=== PATIENT | male | born 1950 | race Caucasian/White ===

== ENCOUNTER → 2016-07-14 | Outpatient (CLI) | payer MEDICARE ==
[~2016-07-14] MED LIST: ACET50TA PO; AMLO5TAB2 PO; ASPI81TA85 PO; KEFL250C6 PO; RAMI10CA PO; SIMV40TA2 PO; VICO5TAB16 PO; chantix OR; metoprolol OR
[2016-07-14 13:44] LABS: ALBUMIN 3.5 GM/DL (3.2-5.2); ANION GAP 10 MEQ/L (8-16); BLOOD UREA NITROGEN 13 MG/DL (7-18); CALCIUM LEVEL 9.1 MG/DL (8.8-10.2); CARBON DIOXIDE LEVEL 25 MEQ/L (21-32); CHLORIDE LEVEL 106 MEQ/L (98-107); CREATININE FOR GFR 0.94 MG/DL (0.70-1.30); GLOMERULAR FILTRATION RATE > 60.0 (>49); GLUCOSE, FASTING 127 MG/DL (80-110); PHOSPHORUS LEVEL 2.9 MG/DL (2.5-4.9); POTASSIUM SERUM 4.5 MEQ/L (3.5-5.1); SODIUM LEVEL 141 MEQ/L (136-145)
== END ==
LOC: M SMT 09:19
PROVIDERS: ATTEND Nurse Practitioner Family
DX: I10 Essential (primary) hypertension (principal)

== ENCOUNTER → 2016-07-14 | Outpatient (CLI) | payer MEDICARE | LOC: M SMT 09:13 | PROVIDERS: ATTEND Family Medicine | DX: F52.21 Male erectile disorder (principal); I10 Essential (primary) hypertension ==

== ENCOUNTER → 2017-02-21 | Outpatient (CLI) | payer MEDICARE ==
[2017-02-21 15:49] LABS: BASO # 0.1 10^3/uL (0.0-0.2); BASO % 0.6 % (0.0-1.0); EOS # 0.3 10^3/uL (0.0-0.50); EOS % 3.8 % (0.0-3.0); IMMATURE GRANULOCYTE % 0.2 % (0-0); LYMPH # 2.1 10^3/uL (1.5-4.5); LYMPH % 25.3 % (24.0-44.0); MEAN CORPUSCULAR HEMOGLOBIN 31.6 pg (27.0-33.0); MEAN CORPUSCULAR HGB CONC 32.8 g/dl (32.0-36.5); MEAN CORPUSCULAR VOLUME 96.3 fl (80.0-96.0); MONO # 0.7 10^3/uL (0.0-0.8); MONO % 8.3 % (0.0-5.0); NEUTROPHILS % 61.8 % (36.0-66.0); PLATELET COUNT, AUTOMATED 207 10^3/uL (150-450); RED CELL DISTRIBUTION WIDTH 13.3 % (11.5-14.5); WHITE BLOOD COUNT 8.1 10^3/uL (4.0-10.0)
[2017-02-21 16:25] LABS: ALBUMIN 3.5 GM/DL (3.2-5.2); ALBUMIN/GLOBULIN RATIO 1.13 (1.00-1.93); BILIRUBIN,TOTAL 0.5 MG/DL (0.2-1.0); CALCIUM LEVEL 9.3 MG/DL (8.8-10.2); CREATININE FOR GFR 1.39 MG/DL (0.70-1.30); GLOMERULAR FILTRATION RATE 54.3 (>49); POTASSIUM SERUM 4.8 MEQ/L (3.5-5.1); TOTAL PROTEIN 6.6 GM/DL (6.4-8.2)
== END ==
LOC: M SMT 10:05
PROVIDERS: ATTEND Family Medicine
DX: I10 Essential (primary) hypertension (principal); E78.2 Mixed hyperlipidemia

== ENCOUNTER → 2017-05-22 | Outpatient (CLI) | payer MEDICARE ==
[2017-05-22 13:53] LABS: BASO # 0.1 10^3/uL (0.0-0.2); BASO % 0.6 % (0.0-1.0); EOS # 0.2 10^3/uL (0.0-0.50); HEMATOCRIT 41.7 % (42.0-52.0); HEMOGLOBIN 13.7 g/dl (14.0-18.0); IMMATURE GRANULOCYTE % 0.2 % (0-0); LYMPH # 1.2 10^3/uL (1.5-4.5); LYMPH % 15.1 % (24.0-44.0); MEAN CORPUSCULAR HEMOGLOBIN 30.9 pg (27.0-33.0); MEAN CORPUSCULAR HGB CONC 32.9 g/dl (32.0-36.5); MEAN CORPUSCULAR VOLUME 93.9 fl (80.0-96.0); MONO # 0.8 10^3/uL (0.0-0.8); MONO % 9.8 % (0.0-5.0); NEUTROPHILS # 5.9 10^3/uL (1.8-7.7); NEUTROPHILS % 72.3 % (36.0-66.0); PLATELET COUNT, AUTOMATED 246 10^3/uL (150-450); RED BLOOD COUNT 4.44 10^6/uL (4.30-6.10); RED CELL DISTRIBUTION WIDTH 14.3 % (11.5-14.5); WHITE BLOOD COUNT 8.1 10^3/uL (4.0-10.0)
[2017-05-22 14:35] LABS: ALBUMIN 3.8 GM/DL (3.2-5.2); ALBUMIN/GLOBULIN RATIO 1.15 (1.00-1.93); ALKALINE PHOSPHATASE 251 U/L (45-117); ALT/SGPT 162 U/L (12-78); ANION GAP 8 MEQ/L (8-16); AST/SGOT 109 U/L (7-37); BLOOD UREA NITROGEN 16 MG/DL (7-18); CALCIUM LEVEL 9.4 MG/DL (8.8-10.2); CARBON DIOXIDE LEVEL 25 MEQ/L (21-32); CHLORIDE LEVEL 106 MEQ/L (98-107); CHOLESTEROL LEVEL 127 MG/DL (<200); CHOLESTEROL RISK RATIO 2.953 (<5); CREATININE FOR GFR 1.24 MG/DL (0.70-1.30); FREE T4 1.06 NG/DL (0.76-1.46); GLOMERULAR FILTRATION RATE > 60.0 (>49); GLUCOSE, FASTING 106 MG/DL (80-110); HDL CHOLESTEROL 43 MG/DL (>40); NON-HDL-C 84 MG/DL; SODIUM LEVEL 139 MEQ/L (136-145); TOTAL PROTEIN 7.1 GM/DL (6.4-8.2); TRIGLYCERIDES LEVEL 80 MG/DL (<150)
== END ==
LOC: M SMT 09:14
DX: I11.9 Hypertensive heart disease without heart failure (principal); E78.2 Mixed hyperlipidemia; I25.10 Atherosclerotic heart disease of native coronary artery without angina pectoris
CPT/HCPCS: 84443

== ENCOUNTER → 2017-08-24 | Outpatient (CLI) | payer MEDICARE ==
[2017-08-24 10:51] LABS: BASO # 0.1 10^3/uL (0.0-0.2); BASO % 0.7 % (0.0-1.0); EOS # 0.2 10^3/uL (0.0-0.50); EOS % 3.2 % (0.0-3.0); HEMATOCRIT 43.1 % (42.0-52.0); HEMOGLOBIN 14.5 g/dl (13.5-17.5); IMMATURE GRANULOCYTE % 0.4 % (0-3.0); LYMPH # 1.8 10^3/uL (1.5-4.5); LYMPH % 24.1 % (24.0-44.0); MEAN CORPUSCULAR HEMOGLOBIN 32.1 pg (27.0-33.0); MEAN CORPUSCULAR HGB CONC 33.6 g/dl (32.0-36.5); MEAN CORPUSCULAR VOLUME 95.4 fl (80.0-96.0); MONO # 0.7 10^3/uL (0.0-0.8); MONO % 10.2 % (0.0-5.0); NEUTROPHILS # 4.5 10^3/uL (1.8-7.7); NEUTROPHILS % 61.4 % (36.0-66.0); PLATELET COUNT, AUTOMATED 214 10^3/uL (150-450); RED BLOOD COUNT 4.52 10^6/uL (4.30-6.10); RED CELL DISTRIBUTION WIDTH 14.3 % (11.5-14.5); WHITE BLOOD COUNT 7.3 10^3/uL (4.0-10.0)
[2017-08-24 11:11] LABS: ALBUMIN 3.3 GM/DL (3.2-5.2); ALBUMIN/GLOBULIN RATIO 0.89 (1.00-1.93); ALKALINE PHOSPHATASE 453 U/L (45-117); ALT/SGPT 185 U/L (12-78); ANION GAP 6 MEQ/L (8-16); AST/SGOT 87 U/L (7-37); BILIRUBIN,TOTAL 1.8 MG/DL (0.2-1.0); BLOOD UREA NITROGEN 20 MG/DL (7-18); CALCIUM LEVEL 9.1 MG/DL (8.8-10.2); CARBON DIOXIDE LEVEL 25 MEQ/L (21-32); CHLORIDE LEVEL 109 MEQ/L (98-107); CHOLESTEROL LEVEL 133 MG/DL (<200); CREATININE FOR GFR 1.45 MG/DL (0.70-1.30); FREE T4 1.19 NG/DL (0.76-1.46); GLOMERULAR FILTRATION RATE 51.7 (>49); GLUCOSE, FASTING 93 MG/DL (70-100); HDL CHOLESTEROL 38 MG/DL (>40); LDL CHOLESTEROL 77.4 MG/DL (<100); NON-HDL-C 95 MG/DL; POTASSIUM SERUM 4.8 MEQ/L (3.5-5.1); SODIUM LEVEL 140 MEQ/L (136-145); TRIGLYCERIDES LEVEL 88 MG/DL (<150)
[2017-08-24 13:03] LABS: GAMMA GLUTAMYLTRANSPEPTIDASE 1512 U/L (15-85)
[2017-08-25 11:00] LABS: CARCINOEMBRYONIC ANTIGEN 2.7 NG/ML (<2.5)
== END ==
LOC: M SMT 08:34
DX: E78.2 Mixed hyperlipidemia (principal); I25.10 Atherosclerotic heart disease of native coronary artery without angina pectoris; I10 Essential (primary) hypertension; R74.8 Abnormal levels of other serum enzymes
CPT/HCPCS: 82378

== ENCOUNTER → 2017-09-07 | Outpatient (CLI) | payer MEDICARE ==
[2017-09-08 10:11] LABS: HEPATITIS B SURFACE ANTIBODY NEGATIVE (POSITIVE)
[2017-09-08 10:19] LABS: HEPATITIS B SURFACE ANTIGEN NEGATIVE (NEGATIVE)
[2017-09-08 10:42] LABS: HEPATITIS B CORE ANTIBODY IGM NEGATIVE (NEGATIVE)
[2017-09-08 10:43] LABS: HEPATITIS A ANTIBODY IGM NEGATIVE (NEGATIVE)
[2017-09-09 08:30] LABS: HEPATITIS A IgG TOTAL Positive (Negative)
== END ==
LOC: M SMT 12:57
DX: R74.8 Abnormal levels of other serum enzymes (principal)
CPT/HCPCS: 86706

== ENCOUNTER → 2017-09-12 | Outpatient (CLI) | payer MEDICARE | LOC: M RAD 07:50 | DX: R74.8 Abnormal levels of other serum enzymes (principal) | CPT/HCPCS: 76705 ==

== ENCOUNTER → 2017-09-27 | Outpatient (CLI) | payer MEDICARE ==
[2017-09-27 17:18] LABS: BASO # 0.1 10^3/uL (0.0-0.2); BASO % 0.6 % (0.0-1.0); EOS # 0.2 10^3/uL (0.0-0.50); EOS % 2.1 % (0.0-3.0); HEMOGLOBIN 13.4 g/dl (13.5-17.5); IMMATURE GRANULOCYTE % 0.5 % (0-3.0); LYMPH # 2.4 10^3/uL (1.5-4.5); LYMPH % 31.4 % (24.0-44.0); MEAN CORPUSCULAR HEMOGLOBIN 32.8 pg (27.0-33.0); MEAN CORPUSCULAR HGB CONC 33.5 g/dl (32.0-36.5); MEAN CORPUSCULAR VOLUME 97.8 fl (80.0-96.0); MONO # 0.5 10^3/uL (0.0-0.8); MONO % 6.7 % (0.0-5.0); NEUTROPHILS # 4.6 10^3/uL (1.8-7.7); NEUTROPHILS % 58.7 % (36.0-66.0); PLATELET COUNT, AUTOMATED 252 10^3/uL (150-450); RED BLOOD COUNT 4.09 10^6/uL (4.30-6.10); RED CELL DISTRIBUTION WIDTH 15.1 % (11.5-14.5); WHITE BLOOD COUNT 7.8 10^3/uL (4.0-10.0)
[2017-09-27 18:36] LABS: ALBUMIN 3.2 GM/DL (3.2-5.2); ALBUMIN/GLOBULIN RATIO 0.82 (1.00-1.93); ALKALINE PHOSPHATASE 620 U/L (45-117); ALT/SGPT 118 U/L (12-78); ANION GAP 9 MEQ/L (8-16); AST/SGOT 82 U/L (7-37); BILIRUBIN,TOTAL 2.6 MG/DL (0.2-1.0); BLOOD UREA NITROGEN 20 MG/DL (7-18); CALCIUM LEVEL 9.3 MG/DL (8.8-10.2); CARBON DIOXIDE LEVEL 24 MEQ/L (21-32); CHLORIDE LEVEL 107 MEQ/L (98-107); CREATININE FOR GFR 1.45 MG/DL (0.70-1.30); GLOMERULAR FILTRATION RATE 51.7 (>49); GLUCOSE, FASTING 84 MG/DL (70-100); POTASSIUM SERUM 4.6 MEQ/L (3.5-5.1); SODIUM LEVEL 140 MEQ/L (136-145); TOTAL PROTEIN 7.1 GM/DL (6.4-8.2)
== END ==
LOC: M SMT 14:00
DX: R94.5 Abnormal results of liver function studies (principal)
CPT/HCPCS: 80053

== ENCOUNTER → 2017-10-04 | Outpatient (CLI) | payer MEDICARE ==
[~2017-10-04] MED LIST changes: -ACET50TA PO; -AMLO5TAB2 PO; -ASPI81TA85 PO; +GASTROGRAFIN SOLUTION 30ML (Q9963) As Ordered; +ISOVUE-370 76% 100ML VIAL (Q9967) As Ordered; -KEFL250C6 PO; -RAMI10CA PO; -SIMV40TA2 PO; -VICO5TAB16 PO; -chantix OR; -metoprolol OR
== END ==
LOC: M RAD 10:47
DX: R10.11 Right upper quadrant pain (principal); R94.5 Abnormal results of liver function studies
CPT/HCPCS: Q9963

== ENCOUNTER → 2017-10-20 | Outpatient (CLI) | payer MEDICARE ==
[2017-10-20 13:23] LABS: BASO # 0.1 10^3/uL (0.0-0.2); BASO % 0.7 % (0.0-1.0); EOS # 0.3 10^3/uL (0.0-0.50); EOS % 3.7 % (0.0-3.0); HEMATOCRIT 41.3 % (42.0-52.0); HEMOGLOBIN 13.7 g/dl (13.5-17.5); IMMATURE GRANULOCYTE % 0.7 % (0-3.0); LYMPH % 28.5 % (24.0-44.0); MEAN CORPUSCULAR HEMOGLOBIN 32.8 pg (27.0-33.0); MEAN CORPUSCULAR HGB CONC 33.2 g/dl (32.0-36.5); MEAN CORPUSCULAR VOLUME 98.8 fl (80.0-96.0); MONO # 0.7 10^3/uL (0.0-0.8); MONO % 9.7 % (0.0-5.0); NEUTROPHILS % 56.7 % (36.0-66.0); PLATELET COUNT, AUTOMATED 248 10^3/uL (150-450); RED BLOOD COUNT 4.18 10^6/uL (4.30-6.10); RED CELL DISTRIBUTION WIDTH 15.4 % (11.5-14.5)
[2017-10-20 13:45] LABS: INR 1.03; PARTIAL THROMBOPLASTIN TIME 29.2 SECONDS (26.8-37.9); PROTHROMBIN TIME 13.6 SECONDS (12.4-14.5)
[2017-10-20 13:59] LABS: ALBUMIN 3.3 GM/DL (3.2-5.2); ALBUMIN/GLOBULIN RATIO 0.87 (1.00-1.93); ALKALINE PHOSPHATASE 842 U/L (45-117); ALT/SGPT 139 U/L (12-78); ANION GAP 9 MEQ/L (8-16); AST/SGOT 120 U/L (7-37); BILIRUBIN,TOTAL 2.3 MG/DL (0.2-1.0); BLOOD UREA NITROGEN 16 MG/DL (7-18); CALCIUM LEVEL 9.3 MG/DL (8.8-10.2); CARBON DIOXIDE LEVEL 24 MEQ/L (21-32); CHLORIDE LEVEL 107 MEQ/L (98-107); CREATININE FOR GFR 1.29 MG/DL (0.70-1.30); GLOMERULAR FILTRATION RATE 59.1 (>49); GLUCOSE, FASTING 63 MG/DL (70-100); POTASSIUM SERUM 4.8 MEQ/L (3.5-5.1); SODIUM LEVEL 140 MEQ/L (136-145); TOTAL PROTEIN 7.1 GM/DL (6.4-8.2)
== END ==
LOC: M SMT 09:15
DX: R93.5 Abnormal findings on diagnostic imaging of other abdominal regions, including retroperitoneum (principal); R94.5 Abnormal results of liver function studies; Z79.899 Other long term (current) drug therapy
CPT/HCPCS: 80053

== ENCOUNTER → 2017-12-12 | Outpatient (CLI) | payer MEDICARE ==
[2017-12-12 12:20] LABS: BASO # 0.1 10^3/uL (0.0-0.2); BASO % 0.5 % (0.0-1.0); EOS # 0.4 10^3/uL (0.0-0.50); EOS % 4.8 % (0.0-3.0); HEMATOCRIT 42.7 % (42.0-52.0); HEMOGLOBIN 14.6 g/dl (13.5-17.5); IMMATURE GRANULOCYTE # 0.1 10^3/uL (0-0); IMMATURE GRANULOCYTE % 0.5 % (0-3.0); LYMPH % 22.4 % (24.0-44.0); MEAN CORPUSCULAR HEMOGLOBIN 33.6 pg (27.0-33.0); MEAN CORPUSCULAR HGB CONC 34.2 g/dl (32.0-36.5); MEAN CORPUSCULAR VOLUME 98.4 fl (80.0-96.0); MONO # 0.7 10^3/uL (0.0-0.8); MONO % 7.8 % (0.0-5.0); NEUTROPHILS # 5.8 10^3/uL (1.8-7.7); PLATELET COUNT, AUTOMATED 192 10^3/uL (150-450); RED BLOOD COUNT 4.34 10^6/uL (4.30-6.10); RED CELL DISTRIBUTION WIDTH 14.2 % (11.5-14.5); WHITE BLOOD COUNT 9.1 10^3/uL (4.0-10.0)
[2017-12-12 13:31] LABS: ALBUMIN 3.6 GM/DL (3.2-5.2); ALBUMIN/GLOBULIN RATIO 1.13 (1.00-1.93); ALKALINE PHOSPHATASE 82 U/L (45-117); ALT/SGPT 18 U/L (12-78); ANION GAP 9 MEQ/L (8-16); AST/SGOT 14 U/L (7-37); BILIRUBIN,TOTAL 0.4 MG/DL (0.2-1.0); BLOOD UREA NITROGEN 14 MG/DL (7-18); CARBON DIOXIDE LEVEL 24 MEQ/L (21-32); CHLORIDE LEVEL 109 MEQ/L (98-107); CREATININE FOR GFR 1.39 MG/DL (0.70-1.30); GLOMERULAR FILTRATION RATE 54.1 (>49); GLUCOSE, FASTING 91 MG/DL (70-100); POTASSIUM SERUM 4.5 MEQ/L (3.5-5.1); SODIUM LEVEL 142 MEQ/L (136-145); TOTAL PROTEIN 6.8 GM/DL (6.4-8.2)
== END ==
LOC: M SMT 10:26
DX: R93.5 Abnormal findings on diagnostic imaging of other abdominal regions, including retroperitoneum (principal); R94.5 Abnormal results of liver function studies; K80.51 Calculus of bile duct without cholangitis or cholecystitis with obstruction

== ENCOUNTER → 2017-12-12 | Outpatient (CLI) | payer MEDICARE ==
[2017-12-12 13:27] LABS: CHOLESTEROL LEVEL 134 MG/DL (<200); FREE T4 1.14 NG/DL (0.76-1.46); HDL CHOLESTEROL 40 MG/DL (>40); LDL CHOLESTEROL 77.4 MG/DL (<100); NON-HDL-C 94 MG/DL; TRIGLYCERIDES LEVEL 83 MG/DL (<150)
== END ==
LOC: M SMT 10:31
DX: E78.2 Mixed hyperlipidemia (principal); R93.5 Abnormal findings on diagnostic imaging of other abdominal regions, including retroperitoneum; R94.5 Abnormal results of liver function studies; K80.51 Calculus of bile duct without cholangitis or cholecystitis with obstruction
CPT/HCPCS: 84443

== ENCOUNTER → 2018-06-05 | Outpatient (CLI) | payer MEDICARE, OTHER ==
[~2018-06-05] MED LIST changes: +ACET50TA PO; +AMLO10TA5; +AMLO5TAB6 PO; +ASPI81TA85 PO; +CARV6.25; +GABA-843; -GASTROGRAFIN SOLUTION 30ML (Q9963) As Ordered; -ISOVUE-370 76% 100ML VIAL (Q9967) As Ordered; +KEFL250C6 PO; +NITR0.4S14; +OMEP40CA2; +RAMI10CA PO; +SIMV40TA2 PO; +SPIR-10; +VICO5TAB16 PO; +VITA100067 PO; +chantix OR; +metoprolol OR
[2018-06-05 13:49] LABS: BASO % 0.6 % (0.0-1.0); EOS # 0.3 10^3/uL (0.0-0.50); EOS % 3.7 % (0.0-3.0); HEMATOCRIT 49.2 % (42.0-52.0); HEMOGLOBIN 16.2 g/dl (13.5-17.5); LYMPH # 1.8 10^3/uL (1.5-4.5); LYMPH % 26.3 % (24.0-44.0); MEAN CORPUSCULAR HEMOGLOBIN 32.1 pg (27.0-33.0); MEAN CORPUSCULAR HGB CONC 32.9 g/dl (32.0-36.5); MEAN CORPUSCULAR VOLUME 97.4 fl (80.0-96.0); MONO # 0.6 10^3/uL (0.0-0.8); MONO % 8.2 % (0.0-5.0); NEUTROPHILS # 4.1 10^3/uL (1.8-7.7); NEUTROPHILS % 60.9 % (36.0-66.0); PLATELET COUNT, AUTOMATED 233 10^3/uL (150-450); RED BLOOD COUNT 5.05 10^6/uL (4.30-6.10); WHITE BLOOD COUNT 6.7 10^3/uL (4.0-10.0)
[2018-06-05 14:01] LABS: ALBUMIN 3.9 GM/DL (3.2-5.2); BILIRUBIN,TOTAL 0.6 MG/DL (0.2-1.0); CALCIUM LEVEL 9.3 MG/DL (8.8-10.2); CREATININE FOR GFR 1.38 MG/DL (0.70-1.30); FREE T4 1.12 NG/DL (0.76-1.46); GLOMERULAR FILTRATION RATE 54.5 (>49); POTASSIUM SERUM 4.9 MEQ/L (3.5-5.1); THYROID STIMULATING HORMONE 2.94 uIU/ML (0.358-3.740)
== END ==
LOC: M SMT 09:26
PROVIDERS: ATTEND Family Medicine
DX: I25.10 Atherosclerotic heart disease of native coronary artery without angina pectoris (principal); E78.2 Mixed hyperlipidemia; I10 Essential (primary) hypertension

== ENCOUNTER 2018-07-03 06:55 | Day surgery (SDC) | payer MEDICARE ==
[~2018-07-03] VITALS: Ht 172.7 cm; Wt 108.0 kg
[~2018-07-03 06:55] MED LIST changes: +ASPI1TAB PO; -CARV6.25; +CARV6.25 PO; -GABA-843; +GABA-843 PO; +LR 1,000 ML IV ONE; -NITR0.4S14; +NITR0.4S14 PO; -OMEP40CA2; +OMEP40CA2 PO; +RAMI1CAP26 PO; -SPIR-10; +SPIR-10 PO
[2018-07-03] MEDS ORDERED: fentaNYL 100 MCG/2 ML INJECTION (J3010) As Ordered ONE (07:46)
[2018-07-03] MEDS ORDERED: MIDAZOLAM INJ 2 MG/2 ML VIAL (J2250) As Ordered ONE (07:46)
[2018-07-03] MEDS ORDERED: dexameTHASONE 4 MG/ML 1ML VIAL (J1100) As Ordered ONE (07:48)
[2018-07-03] MEDS ORDERED: PROPOFOL 200 MG/20 ML VIAL As Ordered ONE (07:48)
[2018-07-03] MEDS ORDERED: LIDOCAINE 2% INJ 100 MG/5 ML SDV (FOR ANES.) As Ordered ONE (07:48)
[2018-07-03] MEDS ORDERED: ONDANSETRON 4MG/2ML VIAL (J2405) As Ordered ONE (07:48)
[2018-07-03] MEDS ORDERED: ROCURONIUM BROMIDE 50 MG/5 ML VIAL As Ordered ONE (07:48)
[2018-07-03] MEDS ORDERED: GLUCAGON FOR INJ 1 MG VIAL (J1610) As Ordered ONE (07:55)
[2018-07-03] MEDS ORDERED: BUPIVACAINE/EPIN 0.25% 30 ML VIAL As Ordered ONE (07:55)
[2018-07-03] MEDS ORDERED: CONRAY-60 60% 50ML VIAL (Q9961) As Ordered ONE (07:55)
[2018-07-03] MEDS ORDERED: ceFAZolin SOD 1 GM in D5W MINI-BAG PLUS 50 ML IV ONE (08:00)
[2018-07-03] MEDS ORDERED: ceFAZolin 1GM INJ (J0690 PER 500MG) As Ordered ONE (08:06)
[2018-07-03] MEDS ORDERED: SUGAMMADEX SODIUM 500 MG/5 ML VIAL (BRIDION) As Ordered ONE (09:01)
[2018-07-03] MEDS ORDERED: KETOROLAC 60 MG/2 ML VIAL (J1885) As Ordered ONE (09:02)
[2018-07-03] MEDS ORDERED: MEPERIDINE INJ 25 MG/ML VIAL (J2175) IV PRN (10:00)
[2018-07-03] MEDS ORDERED: fentaNYL 100 MCG/2 ML INJECTION (J3010) IV PRN (10:00)
[2018-07-03] MEDS ORDERED: LR 1,000 ML IV SCH ×2 (10:00)
[2018-07-03] MEDS ORDERED: PERCOCET 5MG/325MG TAB PO PRN (10:00)
[2018-07-03] MEDS ORDERED: NORCO, ANEXSIA 5/325MG TABLET (HYDROcodone/ACETAMINOPHEN) PO PRN (10:00)
[2018-07-03] MEDS ORDERED: METOCLOPRAMIDE INJ 10MG/2ML VIAL (J2765) IV PRN (10:00)
[2018-07-03] MEDS ORDERED: ONDANSETRON 4MG/2ML VIAL (J2405) IV PRN ×2 (10:00)
--- NOTE | 2018-07-03 10:09 | RO ---
DATE OF PROCEDURE: 07/03/2018 PREOPERATIVE DIAGNOSES: Cholecystitis with history of choledocholithiasis and common bile duct stent. POSTOPERATIVE DIAGNOSES: Cholecystitis with history of choledocholithiasis and common bile duct stent. PROCEDURE: Laparoscopic cholecystectomy. SURGEON: Dr. Ranjit Hutchison. ANESTHESIA: General endotracheal anesthesia ESTIMATED BLOOD LOSS: Minimal. FLUIDS: Crystalloid. BRIEF PROCEDURE SUMMARY: The patient was brought to the operating room and was given general anesthesia. After adequate anesthesia and preoperative antibiotics were given, the patient was prepped and draped in usual sterile fashion. Next supraumbilical incision was made with skin knife. Blunt dissection was carried down to fascia. Fascia was grasped with Cinthya clamps, elevated and a Veress needle placed into the abdominal cavity, insufflated to 15 mmHg. A dilating 10 mm trocar was placed at this time and under direct visualization, an epigastric and two lateral trocars were placed. Gallbladder was grasped, retracted superiorly. Numerous adhesions of the omentum up to the gallbladder were taken down with the hook cautery and I was able to stay on the gallbladder wall quite nicely all the way down to the neck of the gallbladder clearing the peritoneum laterally, brought me behind the neck of the gallbladder quite nicely in this area and then working anteriorly and on the medial side I was able to mobilize the neck of the gallbladder better and once this was performed then I could see the cystic artery coming up onto the wall of the gallbladder. Dissection posterior to the neck of the gallbladder created a nice window behind the neck of the gallbladder and a critical view of safety was obtained. The cystic duct/neck of the gallbladder confluents was evaluated and was seen. There is a lot of chronic fibrosis associated with all the dissection in here and eventually I was able to dissect off a great deal of this to where it tapered down nicely so the clip will be able to fit across the neck of the gallbladder/cystic duct junction and once again, critical view of safety was evaluated, seen and the cystic duct clipped times three and the neck of the gallbladder clipped as well. This was transected and then at this point, the cystic artery was also clipped proximally, distally and transected and the gallbladder was removed from the gallbladder bed using electrocautery. There was continued chronic fibrosis all up along the posterior wall along the wall of the gallbladder itself and at one point there was a small 2 mm blood vessel that was transected as I was using cautery to dissect out the gallbladder off the gallbladder bed and this had some oozing associated with it. It was well controlled with electrocautery. Next the gallbladder was removed in its entirety and placed in an EndoCatch bag, brought out through the umbilicus. The right upper quadrant was copiously irrigated until clear and after the operative field was clean, dry, clips were intact in both the cystic duct as well as cystic artery, and operative field was clean and dry, the trocars were removed under direct visualization. #0 Vicryl was used to close the fascia at the umbilicus and all incisions were closed with #4-0 Vicryl. Steri-Strips and dry sterile dressing was applied. The patient was awakened, extubated, brought to recovery room awake, alert, hemodynamically stable. Sponge and needle count correct times two.
[2018-07-03 10:30] VITALS: BP 132/67
== END 2018-07-03 11:18 | disposition home or self-care (01) ==
LOC: M SDC 06:55
PROVIDERS: ATTEND Surgery
DX: K80.12 Calculus of gallbladder with acute and chronic cholecystitis without obstruction (principal); Z96.89 Presence of other specified functional implants; I25.10 Atherosclerotic heart disease of native coronary artery without angina pectoris; I25.2 Old myocardial infarction; I10 Essential (primary) hypertension; E78.00 Pure hypercholesterolemia, unspecified; M12.9 Arthropathy, unspecified; M54.9 Dorsalgia, unspecified; F32.9 Major depressive disorder, single episode, unspecified; I71.4 Abdominal aortic aneurysm, without rupture; R94.5 Abnormal results of liver function studies; K21.9 Gastro-esophageal reflux disease without esophagitis; F41.9 Anxiety disorder, unspecified; G47.33 Obstructive sleep apnea (adult) (pediatric); R29.898 Other symptoms and signs involving the musculoskeletal system; Z79.899 Other long term (current) drug therapy; Z79.82 Long term (current) use of aspirin; Z72.0 Tobacco use; Z95.5 Presence of coronary angioplasty implant and graft; Z95.0 Presence of cardiac pacemaker; Z87.820 Personal history of traumatic brain injury
CPT/HCPCS: 47562; 88304; J0690; J1100; J1885; J2250; J2405; J3010

== ENCOUNTER 2018-12-10 05:57 | Day surgery (SDC) | payer MEDICARE ==
[~2018-12-10] VITALS: Ht 172.7 cm; Wt 104.3 kg
[~2018-12-10 05:57] MED LIST changes: -ACET50TA PO; -AMLO10TA5; +AMLO10TA5 PO; -ASPI1TAB PO; +ASPI81TA26 PO; +D 1010004 PO; -LR 1,000 ML IV ONE; +MAPA500T17 PO
[2018-12-10] MEDS ORDERED: LR 1,000 ML IV ONE (06:00)
[2018-12-10 06:32] VITALS: BP 121/63
[2018-12-10] MEDS ORDERED: ISOVUE-300 61% 50ML VIAL (Q9967) As Ordered ONE (06:59)
[2018-12-10] MEDS ORDERED: PROPOFOL 200 MG/20 ML VIAL As Ordered ONE (07:15)
[2018-12-10] MEDS ORDERED: dexameTHASONE 4 MG/ML 1ML VIAL (J1100) As Ordered ONE (07:16)
[2018-12-10] MEDS ORDERED: LIDOCAINE 2% INJ 100 MG/5 ML SDV (FOR ANES.) As Ordered ONE (07:16)
[2018-12-10] MEDS ORDERED: ROCURONIUM BROMIDE 50 MG/5 ML VIAL As Ordered ONE (07:16)
[2018-12-10] MEDS ORDERED: ONDANSETRON 4MG/2ML VIAL (J2405) As Ordered ONE (07:16)
[2018-12-10] MEDS ORDERED: MIDAZOLAM INJ 2 MG/2 ML VIAL (J2250) As Ordered ONE (07:17)
[2018-12-10] MEDS ORDERED: fentaNYL 100 MCG/2 ML INJECTION (J3010) As Ordered ONE (07:17)
== END 2018-12-10 08:00 | disposition home or self-care (01) ==
LOC: M SDC 05:57
PROVIDERS: ATTEND Internal Medicine Gastroenterology
DX: Z53.8 Procedure and treatment not carried out for other reasons (principal); K80.50 Calculus of bile duct without cholangitis or cholecystitis without obstruction

== ENCOUNTER → 2018-12-17 | Outpatient (CLI) | payer MEDICARE ==
[2018-12-17 13:20] LABS: BASO # 0.1 10^3/uL (0.0-0.2); BASO % 0.5 % (0.0-1.0); EOS # 0.2 10^3/uL (0.0-0.50); EOS % 2.3 % (0.0-3.0); HEMATOCRIT 44.3 % (42.0-52.0); HEMOGLOBIN 14.7 g/dl (13.5-17.5); LYMPH # 2.6 10^3/uL (1.5-4.5); LYMPH % 26.7 % (24.0-44.0); MEAN CORPUSCULAR HEMOGLOBIN 31.4 pg (27.0-33.0); MEAN CORPUSCULAR HGB CONC 33.2 g/dl (32.0-36.5); MEAN CORPUSCULAR VOLUME 94.7 fl (80.0-96.0); MONO # 0.5 10^3/uL (0.0-0.8); MONO % 5.2 % (0.0-5.0); NEUTROPHILS # 6.3 10^3/uL (1.8-7.7); NEUTROPHILS % 64.9 % (36.0-66.0); PLATELET COUNT, AUTOMATED 333 10^3/uL (150-450); RED BLOOD COUNT 4.68 10^6/uL (4.30-6.10); WHITE BLOOD COUNT 9.7 10^3/uL (4.0-10.0)
[2018-12-17 13:29] LABS: BILIRUBIN,TOTAL 0.4 MG/DL (0.2-1.0); CALCIUM LEVEL 9.6 MG/DL (8.8-10.2); CHOLESTEROL RISK RATIO 4.068 (<5); CREATININE FOR GFR 1.3 MG/DL (0.70-1.30); GLOMERULAR FILTRATION RATE 58.3 (>49); POTASSIUM SERUM 4.6 MEQ/L (3.5-5.1); TOTAL PROTEIN 7.2 GM/DL (6.4-8.2)
== END ==
LOC: M SMT 09:58
PROVIDERS: ATTEND Family Medicine
DX: E78.2 Mixed hyperlipidemia (principal); I25.10 Atherosclerotic heart disease of native coronary artery without angina pectoris; I10 Essential (primary) hypertension

== ENCOUNTER 2018-12-19 05:58 | Day surgery (SDC) | payer MEDICARE ==
[~2018-12-19] VITALS: Ht 172.7 cm; Wt 101.2 kg
[2018-12-19] MEDS ORDERED: LIDOCAINE 2% INJ 100 MG/5 ML SDV (FOR ANES.) As Ordered ONE (06:58)
[2018-12-19] MEDS ORDERED: ROCURONIUM BROMIDE 50 MG/5 ML VIAL As Ordered ONE ×2 (06:58→09:46)
[2018-12-19] MEDS ORDERED: dexameTHASONE 4 MG/ML 1ML VIAL (J1100) As Ordered ONE (06:58)
[2018-12-19] MEDS ORDERED: PROPOFOL 200 MG/20 ML VIAL As Ordered ONE (06:58)
[2018-12-19] MEDS ORDERED: ONDANSETRON 4MG/2ML VIAL (J2405) As Ordered ONE (06:59)
[2018-12-19] MEDS ORDERED: fentaNYL 100 MCG/2 ML INJECTION (J3010) As Ordered ONE (06:59)
[2018-12-19] MEDS ORDERED: LR 1,000 ML IV ONE (07:00)
[2018-12-19] MEDS ORDERED: ISOVUE-300 61% 50ML VIAL (Q9967) As Ordered ONE (07:22)
[2018-12-19] MEDS ORDERED: SUGAMMADEX SODIUM 500 MG/5 ML VIAL (BRIDION) As Ordered ONE ×2 (08:20→09:29)
--- NOTE | 2018-12-19 08:44 | ROOR ---
Patient Name: Jj Grewal Procedure Date: 12/19/2018 7:27 AM Date of : 1950 Age: 68 Room: [facility] Gender: Male Note Status: Finalized Procedure: ERCP + Stent Removal + Balloon Sweep Indications: Biliary stent removal Providers: Corbin Jarvis MD Referring MD: Marilyn HESTER DO Requestnelia Provider: Medicines: General Anesthesia Complications: No immediate complications. Procedure: Pre-Anesthesia Assessment: - The heart rate, respiratory rate, oxygen saturations, blood pressure, adequacy of pulmonary ventilation, and response to care were monitored throughout the procedure. The Duodenoscope was introduced through the mouth, and advanced to the duodenum and used to inject contrast into the bile duct. The ERCP was accomplished without difficulty. The patient tolerated the procedure well. Findings: A biliary sphincterotomy had been performed. The sphincterotomy appeared open. One partially covered metal stent originating in the biliary tree was emerging from the major papilla. The stent was visibly patent. One stent was removed from the biliary tree using a Raptor grasping device. The biliary tree was swept with a 12 mm balloon starting at the bifurcation. Nothing was found. Impression: - Prior biliary sphincterotomy appeared open. - One visibly patent stent from the biliary tree was seen in the major papilla. - One stent was removed from the biliary tree. - The biliary tree was swept and nothing was found. - The examination was otherwise normal. Recommendation: - Discharge patient to home. - Return to my office in 2 months. - Watch for pancreatitis, bleeding, perforation, and cholangitis. - The findings and recommendations were discussed with the patient's family. Corbin Jarvis MD Corbin Jarvis MD 12/19/2018 8:43:46 AM Electronically signed by Corbin Jarvis MD Number of Addenda: 0 Note Initiated On: 12/19/2018 7:27 AM Estimated Blood Loss: Estimated blood loss: none.
[2018-12-19 09:10] VITALS: BP 111/53
[2018-12-19] MEDS ORDERED: LR 1,000 ML IV SCH (09:15)
[2018-12-19] MEDS ORDERED: fentaNYL 100 MCG/2 ML INJECTION (J3010) IV PRN (09:15)
[2018-12-19] MEDS ORDERED: LABETALOL HCL 100 MG/20 ML VIAL As Ordered ONE (09:29)
--- NOTE | 2018-12-19 10:11 | REP ---
ERCP: 11 views. History: ERCP in OR. 1-minute 28-second of fluoroscopy time is reported. Findings: A sequence of 11 last image hold fluoroscopically obtained spot radiographs of the right upper quadrant obtained during ERCP document endoscopic positioning, common bile duct cannulation and contrast injection. Electronically Signed by Lenin Hogue MD 12/19/2018 08:54 P
== END 2018-12-19 09:25 | disposition home or self-care (01) ==
LOC: M SDC 05:58
PROVIDERS: ATTEND Internal Medicine Gastroenterology
DX: Z46.59 Encounter for fitting and adjustment of other gastrointestinal appliance and device (principal); Z96.89 Presence of other specified functional implants; I25.10 Atherosclerotic heart disease of native coronary artery without angina pectoris; I25.2 Old myocardial infarction; I10 Essential (primary) hypertension; Z95.5 Presence of coronary angioplasty implant and graft; Z95.0 Presence of cardiac pacemaker; K21.9 Gastro-esophageal reflux disease without esophagitis; E78.5 Hyperlipidemia, unspecified; F41.9 Anxiety disorder, unspecified; F17.210 Nicotine dependence, cigarettes, uncomplicated; Z79.82 Long term (current) use of aspirin; G47.30 Sleep apnea, unspecified; Z79.899 Other long term (current) drug therapy
CPT/HCPCS: 43275; 74330; J1100; J2405; J3010; Q9967

== ENCOUNTER 2018-12-21 18:19 | Emergency (ER) | payer MEDICARE ==
[~2018-12-21] VITALS: Ht 170.2 cm; Wt 103.2 kg
[~2018-12-21 18:19] MED LIST changes: -OMEP40CA2 PO; +OMEP40CA97 PO; +SIMV40TA20 PO
[2018-12-21 20:25] LABS: BASO % 0.3 % (0.0-1.0); EOS # 0.1 10^3/uL (0.0-0.50); EOS % 0.9 % (0.0-3.0); HEMATOCRIT 39.6 % (42.0-52.0); HEMOGLOBIN 13.5 g/dl (13.5-17.5); LYMPH # 2.1 10^3/uL (1.5-4.5); LYMPH % 19.2 % (24.0-44.0); MEAN CORPUSCULAR HEMOGLOBIN 30.6 pg (27.0-33.0); MEAN CORPUSCULAR HGB CONC 34.1 g/dl (32.0-36.5); MEAN CORPUSCULAR VOLUME 89.8 fl (80.0-96.0); MONO # 0.9 10^3/uL (0.0-0.8); MONO % 8.4 % (0.0-5.0); NEUTROPHILS # 7.9 10^3/uL (1.8-7.7); NEUTROPHILS % 70.6 % (36.0-66.0); PLATELET COUNT, AUTOMATED 281 10^3/uL (150-450); RED BLOOD COUNT 4.41 10^6/uL (4.30-6.10); WHITE BLOOD COUNT 11.1 10^3/uL (4.0-10.0)
--- NOTE | 2018-12-21 20:32 | ECGEPIP ---
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
[2018-12-21 21:11] LABS: BLOOD UREA NITROGEN 17 MG/DL (7-18); CALCIUM LEVEL 8.9 MG/DL (8.8-10.2); CARBON DIOXIDE LEVEL 24 MEQ/L (21-32); CHLORIDE LEVEL 102 MEQ/L (98-107); CK-MB VALUE MASS < 1.0 NG/ML (<3.6); CPK CREATINE PHOSPHOKINASE 30 U/L (39-308); CREATININE FOR GFR 1.36 MG/DL (0.70-1.30); ETHYL ALCOHOL (ETHANOL) 0.004 % (0.000-0.010); GLOMERULAR FILTRATION RATE 55.3 (>49); GLUCOSE, FASTING 88 MG/DL (70-100); MAGNESIUM LEVEL 1.7 MG/DL (1.8-2.4); MB/CK RELATIVE INDEX 3.33 (< OR =4); SODIUM LEVEL 132 MEQ/L (136-145); TROPONIN I < 0.02 NG/ML (< 0.10)
[2018-12-21 22:00] VITALS: BP 150/85
== END 2018-12-21 22:15 | disposition home or self-care (01) ==
LOC: M ED 19:53
DX: R55 Syncope and collapse (principal); Z79.899 Other long term (current) drug therapy; Z79.82 Long term (current) use of aspirin; F17.210 Nicotine dependence, cigarettes, uncomplicated
CPT/HCPCS: 36415; 80048; 82550; 82553; 83735; 84443; 84484; 85025; 93005; 93041; 94760; 99285; G0480

== ENCOUNTER → 2018-12-24 | Outpatient (CLI) | payer MEDICARE ==
[~2018-12-24] MED LIST changes: +OMEP40CA2 PO; -OMEP40CA97 PO; -SIMV40TA20 PO
[2018-12-24 17:59] LABS: BASO % 0.4 % (0.0-1.0); EOS # 0.1 10^3/uL (0.0-0.50); EOS % 1.1 % (0.0-3.0); HEMATOCRIT 40.9 % (42.0-52.0); HEMOGLOBIN 13.7 g/dl (13.5-17.5); LYMPH # 2.1 10^3/uL (1.5-4.5); MEAN CORPUSCULAR HEMOGLOBIN 30.9 pg (27.0-33.0); MEAN CORPUSCULAR HGB CONC 33.5 g/dl (32.0-36.5); MEAN CORPUSCULAR VOLUME 92.1 fl (80.0-96.0); MONO # 0.5 10^3/uL (0.0-0.8); MONO % 5.3 % (0.0-5.0); NEUTROPHILS # 7.3 10^3/uL (1.8-7.7); NEUTROPHILS % 71.9 % (36.0-66.0); PLATELET COUNT, AUTOMATED 318 10^3/uL (150-450); RED BLOOD COUNT 4.44 10^6/uL (4.30-6.10); WHITE BLOOD COUNT 10.2 10^3/uL (4.0-10.0)
[2018-12-24 18:05] LABS: BILIRUBIN,TOTAL 0.4 MG/DL (0.2-1.0); CALCIUM LEVEL 9.1 MG/DL (8.8-10.2); CREATININE FOR GFR 1.29 MG/DL (0.70-1.30); GLOMERULAR FILTRATION RATE 58.8 (>49); MAGNESIUM LEVEL 1.9 MG/DL (1.8-2.4); POTASSIUM SERUM 4.5 MEQ/L (3.5-5.1); TOTAL PROTEIN 6.9 GM/DL (6.4-8.2)
== END ==
LOC: M SMT 11:32
PROVIDERS: ATTEND Physician Assistant
DX: R10.11 Right upper quadrant pain (principal); E83.42 Hypomagnesemia

== ENCOUNTER → 2019-06-25 | Outpatient (REF) | payer MEDICARE ==
[~2019-06-25] MED LIST changes: -OMEP40CA2 PO; +OMEP40CA97 PO; +SIMV40TA20 PO
[2019-06-25 12:27] LABS: BASO # 0.1 10^3/uL (0.0-0.2); BASO % 0.7 % (0.0-1.0); EOS # 0.2 10^3/uL (0.0-0.5); HEMATOCRIT 49.3 % (42.0-52.0); HEMOGLOBIN 16.4 g/dl (13.5-17.5); LYMPH # 2.6 10^3/uL (1.5-5.0); LYMPH % 32.3 % (24.0-44.0); MEAN CORPUSCULAR HEMOGLOBIN 31.4 pg (27.0-33.0); MEAN CORPUSCULAR HGB CONC 33.3 g/dl (32.0-36.5); MEAN CORPUSCULAR VOLUME 94.3 fl (80.0-96.0); MONO # 0.6 10^3/uL (0.0-0.8); MONO % 6.8 % (0.0-5.0); NEUTROPHILS # 4.6 10^3/uL (1.5-8.5); NEUTROPHILS % 57.1 % (36.0-66.0); PLATELET COUNT, AUTOMATED 201 10^3/uL (150-450); RED BLOOD COUNT 5.23 10^6/uL (4.30-6.10); WHITE BLOOD COUNT 8.1 10^3/uL (4.0-10.0)
[2019-06-25 12:59] LABS: ALBUMIN 3.8 GM/DL (3.2-5.2); BILIRUBIN,TOTAL 0.5 MG/DL (0.2-1.0); CALCIUM LEVEL 9.2 MG/DL (8.8-10.2); CHOLESTEROL RISK RATIO 3.323 (<5); CREATININE FOR GFR 1.31 MG/DL (0.70-1.30); FREE T4 1.04 NG/DL (0.76-1.46); GLOMERULAR FILTRATION RATE 57.8 (>49); POTASSIUM SERUM 4.8 MEQ/L (3.5-5.1); THYROID STIMULATING HORMONE 1.8 uIU/ML (0.358-3.740)
== END ==
LOC: M LABDRAW1 11:38
PROVIDERS: ATTEND Family Medicine
DX: I10 Essential (primary) hypertension (principal); I25.10 Atherosclerotic heart disease of native coronary artery without angina pectoris; E78.2 Mixed hyperlipidemia

== ENCOUNTER 2019-09-01 21:35 | Inpatient (IN) | payer MEDICARE ==
[~2019-09-01] VITALS: Ht 172.7 cm; Wt 105.0 kg
[2019-09-01] MEDS: DOCUSATE SODIUM 100 MG CAP PO SCH (21:00)
[2019-09-01 22:09] LABS: HEMOGLOBIN 16.7 g/dl (13.5-17.5); MEAN CORPUSCULAR HEMOGLOBIN 32.6 pg (27.0-33.0); MEAN CORPUSCULAR HGB CONC 34.8 g/dl (32.0-36.5); MEAN CORPUSCULAR VOLUME 93.6 fl (80.0-96.0); PLATELET COUNT, AUTOMATED 192 10^3/uL (150-450); RED BLOOD COUNT 5.13 10^6/uL (4.30-6.10); WHITE BLOOD COUNT 15.4 10^3/uL (4.0-10.0)
[2019-09-01 22:17] LABS: CALCIUM LEVEL 9.4 MG/DL (8.8-10.2); CREATININE FOR GFR 1.48 MG/DL (0.70-1.30); GLOMERULAR FILTRATION RATE 50.2 (>49); POTASSIUM SERUM 4.8 MEQ/L (3.5-5.1)
[2019-09-01] MEDS ORDERED: ONDANSETRON 4MG/2ML VIAL IV ONE ×2 (22:30→23:00)
[2019-09-01] MEDS ORDERED: MORPHINE 4 MG/ML 1ML VIAL/SYRINGE (J2270) IV ONE (22:30)
--- NOTE | 2019-09-01 22:35 | REPVR ---
PROCEDURE INFORMATION: Exam: CT Cervical Spine Without Contrast Exam date and time: 09/01/2019 10:08 PM Age: 68 years old Clinical indication: Injury or trauma; Fall; Initial encounter; Blunt trauma TECHNIQUE: Imaging protocol: Computed tomography images of the cervical spine without contrast. Radiation optimization: All CT scans at this facility use at least one of these dose optimization techniques: automated exposure control; mA and/or kV adjustment per patient size (includes targeted exams where dose is matched to clinical indication); or iterative reconstruction. COMPARISON: No relevant prior studies available. FINDINGS: Vertebrae: Advanced discogenic degenerative changes in the cervical spine. No acute fracture or malalignment. Small posterior disc bulge causes spinal stenosis at C3-C4. Facet and uncovertebral joint DJD causes foraminal stenosis at multiple levels, most severely at C3-C4, C4-C5, and C5-C6. Soft tissues: Unremarkable. Lungs: Lung apices are normal. IMPRESSION: 1. No fracture or malalignment. 2. Advanced degenerative spondylosis as above. Electronically signed by: Keagan Robles On 09/01/2019 22:30:25 PM
--- NOTE | 2019-09-01 22:35 | REPVR ---
PROCEDURE INFORMATION: Exam: CT Head Without Contrast Exam date and time: 09/01/2019 10:08 PM Age: 68 years old Clinical indication: Injury or trauma; Fall; Initial encounter; Blunt trauma (contusions or hematomas) TECHNIQUE: Imaging protocol: Computed tomography of the head without contrast. Radiation optimization: All CT scans at this facility use at least one of these dose optimization techniques: automated exposure control; mA and/or kV adjustment per patient size (includes targeted exams where dose is matched to clinical indication); or iterative reconstruction. COMPARISON: CT Head without contrast 08/27/2015 2:39 PM FINDINGS: Brain: There is mild cerebral atrophy. Changes of chronic white matter microvascular disease are present. No signs of a recent infarction or hemorrhage. Ventricles: Normal. No ventriculomegaly. Bones/joints: Unremarkable. No acute fracture. Sinuses: Visualized sinuses are unremarkable. No fluid levels. Mastoid air cells: Visualized mastoid air cells are well aerated. Soft tissues: Unremarkable. IMPRESSION: Atrophy and chronic white matter changes. No acute intracranial abnormality. Electronically signed by: Keagan Robles On 09/01/2019 22:33:39 PM
[2019-09-01] MEDS ORDERED: KETAMINE HCL 200 MG/20 ML VIAL IV ONE (23:30)
[2019-09-01] MEDS: propofoL 200 MG/20 ML VIAL IV PRN ×2 (23:42→23:50)
[2019-09-01] MEDS ORDERED: fentaNYL 100 MCG/2 ML INJECTION (J3010) As Ordered ONE (23:48)
[2019-09-01] MEDS: NS 1,000 ML IV SCH (23:48)
[2019-09-02] VITALS (7 sets, daily range): BP systolic 111–126; BP diastolic 60–68
--- NOTE | 2019-09-02 00:24 | HPEPDOC ---
[facility] Medical History & Physical Date of Admission Sep 02, 2019 Date of Service: Sep 02, 2019 Primary Care Physician: CONSTANCE HESTER DO Attending Physician: SHYLA PARIS MD History and Physical TIME OF SERVICE: 1:05 AM CHIEF COMPLAINT: Difficulties walking and using crutches HISTORY OF PRESENT ILLNESS: This is a 68 year old gentleman who presents after having multiple falls earlier on yesterday. He had a fall early in the morning yesterday. As a result of slipping on a rug he fell onto his right ankle and hit his head; he is not sure if he lost consciousness. He is did not come to the hospital right away; he was able to get some crutches but had difficulties using them and had another fall, therefore he decided to come to the hospital for evaluation. He was evaluated by Dr. Youssef who put a cast on him. The patient reports told that hell need surgery once the swelling goes down. Currently, he denies having any ankle pain. REVIEW OF SYSTEMS: 12 point review of systems negative except as listed in HPI PAST MEDICAL/ SURGICAL HISTORY: Chronic CAD status post stent placement Pacemaker placement. Chronic Hypertension Dyslipidemia UZAIR Class I Obesity He denies having a stroke, or diabetes History of back surgery SOCIAL HISTORY: He smokes He drinks at least one beer or more daily He is from his FAMILY HISTORY: Mother had megaloblastic anemia. Father had SC ALLERGIES: Please see below. HOME MEDICATIONS: Please see below. PHYSICAL EXAMINATION: Vital Signs Date Time Temp Pulse Resp B/P (MAP) Pulse Ox O2 Delivery O2 Flow Rate FiO2 09/01/19 21:45 97.8 97 18 136/74 (94) 98 Room Air 09/01/19 23:39 2.0 99 GEN: well-nourished / well developed/ NAD INTEGUMENT: not flushed/ not jaundice / petechiae are visible on his left lower leg HEENT: NCAT / lips acyanotic /mucus membranes moist and pink CVS: RRR/NMRG LUNGS: lungs are clear to auscultation bilaterally on room air NEURO: CN 2-12 are grossly intact / speech is not dysarthric PSYCH: alert and oriented to person place and time/ able to understand and fol low all commands LABORATORY DATA: IMAGING: CT head IMPRESSION: Atrophy and chronic white matter changes. No acute intracranial abnormality. CT cervical spine IMPRESSION: 1. No fracture or malalignment. 2. Advanced degenerative spondylosis as above. CT right lower extremity IMPRESSION: 1. Comminuted fracture dislocation of the lateral malleolus and posterior tibial plafond. 2. Mild lateral subluxation of the talus. 3. Small loose bodies in the medial and lateral ankle joint space. ASSESSMENT: Mr. Grewal is a 68-year-old with a past medical history of chronic CAD, pacemaker placement, chronic HTN, dyslipidemia, UZAIR and obesity who is admitted for management of a right lateral malleolus and posterior tibial fracture. PLAN: 1. Mechanical fall resulting in right lateral malleolus and right posterior tibial fracture Plan: Admit to medical floor / the day time team can f/u with to determine when the patient will need surgery / fall precautions/ PT and OT consult to determine if he qualifies for inpatient rehabilitation (he has difficulties using the crutches / [place] PRN for pain 2. Transient Syncope Likely 2/[address] of the head and cervical spine were unrevealing Plan: frequent neurochecks 3. SIRS Tachycardia and leukocytosis are likely reactive 2/2 fall Plan: monitor vitals 4. Alcohol Abuse - Plan: fall precautions/ seizure precautions, thiamine, multivitamin, folic acid, Ativan, per CIWAl protocol/fall and seizure precautions 5. Chronic CAD / Dyslipidemia - Plan: simvastatin, nitro / hold ASA pending d/w Ortho 6. Chronic Hypertension - Plan: Coreg, amlodipine, ramipril 7. Class I Obesity w co-existing UZAIR - Plan: f/u A1C / the pt can f/u w his PCP for a strategic partnership representative consult DVT PROPHYLAXIS: SCDs pending d/w DISPO: will need at least 2 midnights stay PFS consult has been placed Home Medications Scheduled Amlodipine Besylate (Amlodipine Besylate) 10 Mg Tab, 10 MG PO DAILY Aspirin (Aspirin EC) 81 Mg Tab, 81 MG PO DAILY Carvedilol (Carvedilol) 6.25 Mg Tab, 6.25 MG PO BID TAKES 0900 AND 1600 Cholecalciferol (Vitamin D3) (Vitamin D3) 1,000 Unit Tablet, 1,000 UNITS PO DAILY Nitroglycerin (Nitroglycerin) 0.4 Mg Sub, 0.4 MG PO NITRO Omeprazole (Omeprazole) 40 Mg Cap, 40 MG PO Q2D Ramipril (Ramipril) 10 Mg Cap, 20 MG PO QPM Simvastatin (Simvastatin) 40 Mg Tab, 40 MG PO QHS Q2D Spironolactone (Spironolactone) 25 Mg Tab, 25 MG PO DAILY Allergies Coded Allergies: No Known Allergies (Unverified , 09/01/19) A-FIB/CHADSVASC A-FIB History Current/History of A-Fib/PAF?: No Current PO Anticoag Therapy: No SHYLA PARIS MD Sep 02, 2019 00:24
[2019-09-02] MEDS ORDERED: ACETAMINOPHEN TAB 650MG DOSE (2X325MG) PO PRN ×2 (00:30→13:15)
--- NOTE | 2019-09-02 00:51 | REPVR ---
PROCEDURE INFORMATION: Exam: CT Right Lower Extremity Without Contrast, Ankle Exam date and time: 09/02/2019 12:23 AM Age: 68 years old Clinical indication: Injury or trauma; Fall; Initial encounter; Dislocation and fracture, traumatic; Ankle; Right; Closed fracture; Subluxation or partial dislocation; Bimalleolar; Additional info: Assess fracture morphology (post. Mal size) TECHNIQUE: Imaging protocol: CT of the Right lower extremity without contrast was performed. Exam focused on the ankle. Radiation optimization: All CT scans at this facility use at least one of these dose optimization techniques: automated exposure control; mA and/or kV adjustment per patient size (includes targeted exams where dose is matched to clinical indication); or iterative reconstruction. COMPARISON: CR Ankle, complete RIGHT 09/01/2019 10:17 PM FINDINGS: Bones/joints: There is a low transverse linear fracture of the posterior articular surface of the tibial plafond. Comminuted fracture of the lateral malleolus extending into the distal fibular metaphysis. Lateral malleolar fragment is mildly posteriorly displaced and angulated. There is widening of the medial ankle joint space with mild lateral talar subluxation. Small loose bodies are present in the medial ankle joint and in the lateral ankle mortise. Numerous small bone fragments are noted adjacent to the medial non articular surface of the talus. Articular surface of the talus is intact. No other fractures are seen in the remainder of the foot. Soft tissues: Diffuse soft tissue swelling in the ankle. IMPRESSION: 1. Comminuted fracture dislocation of the lateral malleolus and posterior tibial plafond. 2. Mild lateral subluxation of the talus. 3. Small loose bodies in the medial and lateral ankle joint space. Electronically signed by: Keagan Robles On 09/02/2019 00:51:05 AM
[2019-09-02] MEDS ORDERED: VITAD1000T PO (01:08)
[2019-09-02] MEDS ORDERED: LORazepam 2 MG TAB PO PRN (01:30)
[2019-09-02] MEDS: THIAMINE 100 MG TAB PO SCH ×3 (01:57→20:15)
[2019-09-02] MEDS: NS 1,000 ML IV SCH (01:58)
[2019-09-02] MEDS: NORCO, ANEXSIA 5/325MG TABLET (HYDROcodone/ACETAMINOPHEN) PO PRN ×3 (01:58→14:04)
[2019-09-02 02:38] LABS: HEMOGLOBIN A1c 5.5 %
--- NOTE | 2019-09-02 02:49 | REP ---
Clinical: Trauma. Fall. Technique: AP, lateral, bilateral oblique views of the right ankle. Findings: Trimalleolar fracture dislocation with complete disruption of the ankle joint noted. Overlying soft tissue swelling identified. No obvious subcutaneous emphysema or foreign body. Impression: Trimalleolar fracture dislocation. Electronically Signed by Nolan Casper MD 09/02/2019 02:41 A
--- NOTE | 2019-09-02 05:44 | ECGEPIP ---
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
[2019-09-02] MEDS ORDERED: ENOXAPARIN 40MG/0.4ML SYRINGE (J1650 PER 10MG) SC SCH (09:00)
[2019-09-02] MEDS ORDERED: NITROGLYCERIN 0.4 MG SUBL TABLET SL PRN (09:00)
[2019-09-02] MEDS: FOLIC ACID 1 MG TAB PO SCH (09:13)
[2019-09-02] MEDS: DOCUSATE SODIUM 100 MG CAP PO SCH ×2 (09:14→20:15)
[2019-09-02] MEDS: amLODIPine 10 MG TAB PO SCH (09:14)
[2019-09-02] MEDS: CARVedilol 6.25 MG TAB PO SCH ×2 (09:14→16:05)
[2019-09-02] MEDS: VITAMIN D 1,000 INTERNATIONAL UNITS TABLET PO SCH (09:15)
[2019-09-02] MEDS: MULTIVITAMINS/MINERALS THERAP 1 TAB PO SCH (09:15)
[2019-09-02] MEDS: SPIRONOLACTONE 25 MG TAB PO SCH (09:15)
--- NOTE | 2019-09-02 09:20 | HPE ---
DATE OF ADMISSION: 09/02/2019 CHIEF COMPLAINT: Right ankle fracture. HISTORY OF PRESENT ILLNESS: This is a 68-year-old man who is seen today at [facility]. He had sustained an ankle fracture this morning. He presented to emergency department this evening. I was called at approximately 11 p.m. He fell at home, twisted his ankle under his body. No prior pain or problems with the ankle, although he does have chronic what seems to be left lower extremity weakness from back surgeries in the past. No chest pain or shortness of breath that brought him in this time. He has pain to the right lower extremity at the ankle, no where else. PAST MEDICAL HISTORY: Hypertension, two myocardial infarctions (RI), gastroesophageal reflux disease (GERD), no diabetes, dyslipidemia. MEDICATIONS: Include: - ASA - ramipril - carvedilol - amlodipine - spironolactone - simvastatin - omeprazole PAST SURGICAL HISTORY: He has had two surgeries, an abdominal aortic aneurysm (AAA), stent, knee scope, and a pacemaker. 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 He used to work on [employer] but he is not in the . Previously smoke 3/4 of a of pack of cigarettes a day. He drinks one alcoholic beverage a day. He does not do any street drugs. He lives alone in a downstairs apartment. He walks with no ambulatory aids. PHYSICAL EXAMINATION: Well-appearing 68-year-old man. Vital signs stable. He has an obvious deformity of his right lower extremity at the ankle. Closed injury. There was already some fracture blisters forming on the medial side of the ankle. He can wiggles his toes. The foot is warm and well perfused. Pulses are difficult to palpate but the foot is warm and there is moderate swelling on dorsum of the foot. No pain of the knee. Compartments are soft in the calves. He has nonlabored breathing. He is alert and oriented times three. He responds to questions appropriately. Normal grooming and affect. Radiographs reviewed of the right ankle. These show a laterally displaced right ankle trimalleolar fracture. ASSESSMENT AND PLAN: I talked to Mr. Grewal about the pros and cons, risks and benefits doing nothing versus closed reduction and splinting to take off pressure from the cartilage and the skin. Dr. Samayoa also had a discussion about conscious sedation. We went ahead and performed conscious sedation with closed reduction and splinting with mini C-arm fluoroscopy to confirm appropriate reduction. We will elevate the leg, have him admitted under the hospitalist service and plan for a CT scan to assess the posterior malleolar fragment size and position. He will need to be admitted and wait until the swelling comes down and the CT is performed before proceeding with surgery. PROCEDURE NOTE: We talked about the pros and cons, risks and benefits of going ahead with closed reduction and splinting under conscious sedation of his right ankle fracture. Specific risks include but not limited to skin breakdown, pain, stiffness, damage to surrounding structures, neurovascular injury, irritation from the cast or cast nayak as well as risk with the anesthetic, clots, , and other risks. He wished to go ahead. Conscious sedation was achieved. I flexed the hip and knee to relax the gastrocnemius. With traction on the great toe I placed a three-sided well-padded plaster of Tamiko splint overwrapped with 6 inch Christopher bandages. I then performed molding to correct the lateral deformity pushing the talus back medially with palm molding. I used the C-arm fluoroscopy to confirm appropriate reduction and closing down the medial clear space as well as that the talus was under the tibia on the lateral radiograph with slight plantar flexion of the foot. Once the cast was set, he was woken up from his sedation and the toes were pink and well perfused.
--- NOTE | 2019-09-02 10:28 | IPNPDOC ---
Text Note Date of Service The patient was seen on 09/02/19. NOTE SUBJECTIVE: Patient admitted overnight secondary to mechanical fall from slipping on a rug at home causing him to fracture his ankle. He is unaware of any plans regarding surgery as they have not stopped by yet today. He reports his pain is well controlled a this time. Denies any fevers, chills, chest pain, difficulty breathing, abdominal pain. OBJECTIVE: PHYSICAL EXAM: Vitals: (see below) General: No acute distress, laying comfortably in bed. HEENT: Normocephalic, atraumatic. EOMI. No scleral icterus. Moist mucous membranes. No pharyngeal erythema or uvular deviation. Neck: No JVD, lymphadenopathy, or thyromegaly. Cardiac: RRR, Normal S1 and S2, No murmurs, gallops, rubs. Pulm: Clear to auscultation b/l. Symmetric thorax. No wheezing, crackles, rhonchi Abd: Bowel Sounds present. Abdomen is soft, non-tender, non-distended. No guarding, rebound tenderness, or rigidity. No hepatosplenomegaly. No masses or eccymosis. Ext: RLE with cast in place, capillary refill<2 seconds, sensation intact. LLE without swelling or edema. Neuro: No focal neuro deficits LABORATORY DATA, MICROBIOLOGY: Please see below. IMAGING STUDIES: ASSESSMENT AND PLAN: This is a 68 year old gentleman who presents after having multiple falls earlier on yesterday. He had a fall early in the morning yesterday. As a result of slipping on a rug he fell onto his right ankle and hit his head; he is not sure if he lost consciousness. He is did not come to the hospital right away; he was able to get some crutches but had difficulties using them and had another fall, therefore he decided to come to the hospital for evaluation. He was evaluated by Dr. Youssef who put a cast on him. The patient reports told that hell need surgery once the swelling goes down. #. Ankle Fx - Orthopedic surgery consulted, patient had cast placed last night. Patient waited 12 hours prior to going to ED, ortho plans to re-eval at the end of the week and see if they can proceed forward. Medical management until then. -[place] PRN for pain -PT/OT ordered #. Transient syncope -CT head, c-spine were negative. - Patient not complaining of any additional pain/discomfort or of further syncopal events. #. SIRS -resolved. HR normal, cbc pending. #. 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 #.CAD -Continue statin, nitro, hold ASA pending ortho eval #. Obesity with UZAIR -Complicating care. -A1C normal DVT prophylaxis: lovenox DISPOSITION: pending ortho eval, PT eval VS,Fishbone, I+O VS, Fishbone, I+O Laboratory Tests 09/01/19 21:47 Vital Signs Date Time Temp Pulse Resp B/P (MAP) Pulse Ox O2 Delivery O2 Flow Rate FiO2 09/02/19 09:45 20 Room Air 09/02/19 09:14 86 120/68 09/02/19 06:00 99.8 94 09/02/19 02:00 99 09/02/19 00:10 2.0 I&O- Last 24 Hours up to 6 AM 09/02/19 06:00 Intake Total 910 ml Output Total 200 ml Balance 710 ml GME ATTESTATION GME ATTESTATION My faculty preceptor for this patient encounter was physically present during the encounter and was fully available. All aspects of the patient interview, examination, medical decision making process, and medical care plan development were reviewed and approved by the faculty preceptor. The faculty preceptor is a faulkner and concurs with the plan as stated in the body of this note and will attest to such by his/her cosignature. ATTENDING NOTE I have independently interviewed and examined the patient at the bedside, and agree with the aforementioned management plans and physical findings as documented by my Resident Physician. JANAE PHAM DO Sep 02, 2019 10:28 GARETT VILLEGAS MD Sep 02, 2019 20:02
[2019-09-02 10:52] LABS: HEMATOCRIT 43.6 % (42.0-52.0); HEMOGLOBIN 14.9 g/dl (13.5-17.5); MEAN CORPUSCULAR HEMOGLOBIN 32.6 pg (27.0-33.0); MEAN CORPUSCULAR HGB CONC 34.2 g/dl (32.0-36.5); MEAN CORPUSCULAR VOLUME 95.4 fl (80.0-96.0); PLATELET COUNT, AUTOMATED 179 10^3/uL (150-450); RED BLOOD COUNT 4.57 10^6/uL (4.30-6.10); WHITE BLOOD COUNT 10.3 10^3/uL (4.0-10.0)
[2019-09-02 11:16] LABS: CALCIUM LEVEL 8.6 MG/DL (8.8-10.2); CREATININE FOR GFR 1.53 MG/DL (0.70-1.30); GLOMERULAR FILTRATION RATE 48.3 (>49); POTASSIUM SERUM 4.2 MEQ/L (3.5-5.1)
[2019-09-02] MEDS ORDERED: KETOROLAC 30 MG/ML 1ML VIAL IV PRN ×3 (12:00→13:00)
[2019-09-02] MEDS ORDERED: FUROSEMIDE 40MG/4ML VIAL (J1940) IV ONE (13:30)
[2019-09-02] MEDS: HEPARIN SOD (PORCINE) 5000UNITS/ML VIAL (J1644 PER 1000UNITS) SQ SCH ×2 (14:04→20:16)
[2019-09-02] MEDS: **hydrALAZINE HCL** 25 MG TAB PO SCH ×2 (16:00→20:16)
[2019-09-02] MEDS ORDERED: ramipriL 5 MG CAP PO SCH (16:00)
[2019-09-02] MEDS: SIMVASTATIN 40 MG TAB PO SCH (20:15)
[2019-09-03] MEDS: HEPARIN SOD (PORCINE) 5000UNITS/ML VIAL (J1644 PER 1000UNITS) SQ SCH ×3 (05:16→22:44)
[2019-09-03] MEDS: NORCO, ANEXSIA 5/325MG TABLET (HYDROcodone/ACETAMINOPHEN) PO PRN ×3 (05:22→17:25)
[2019-09-03 07:14] LABS: HEMATOCRIT 39.6 % (42.0-52.0); HEMOGLOBIN 13.4 g/dl (13.5-17.5); MEAN CORPUSCULAR HEMOGLOBIN 32.9 pg (27.0-33.0); MEAN CORPUSCULAR HGB CONC 33.8 g/dl (32.0-36.5); MEAN CORPUSCULAR VOLUME 97.3 fl (80.0-96.0); PLATELET COUNT, AUTOMATED 150 10^3/uL (150-450); RED BLOOD COUNT 4.07 10^6/uL (4.30-6.10); WHITE BLOOD COUNT 10.5 10^3/uL (4.0-10.0)
[2019-09-03 07:34] LABS: BLOOD UREA NITROGEN 27 MG/DL (7-18); CALCIUM LEVEL 8.3 MG/DL (8.8-10.2); CARBON DIOXIDE LEVEL 22 MEQ/L (21-32); CHLORIDE LEVEL 110 MEQ/L (98-107); CREATININE FOR GFR 1.23 MG/DL (0.70-1.30); GLOMERULAR FILTRATION RATE > 60.0 (>49); GLUCOSE, FASTING 83 MG/DL (70-100); SODIUM LEVEL 139 MEQ/L (136-145)
[2019-09-03 08:00] VITALS: BP 122/64
[2019-09-03] MEDS: amLODIPine 10 MG TAB PO SCH (08:01)
[2019-09-03] MEDS: FOLIC ACID 1 MG TAB PO SCH (08:01)
[2019-09-03] MEDS: **hydrALAZINE HCL** 25 MG TAB PO SCH ×3 (08:02→19:59)
[2019-09-03] MEDS: MOM 30ML SUSPENSION UDC PO SCH (08:02)
[2019-09-03] MEDS: VITAMIN D 1,000 INTERNATIONAL UNITS TABLET PO SCH (08:02)
[2019-09-03] MEDS: CARVedilol 6.25 MG TAB PO SCH ×2 (08:02→14:51)
[2019-09-03] MEDS: DOCUSATE SODIUM 100 MG CAP PO SCH ×2 (08:02→20:00)
[2019-09-03] MEDS: MULTIVITAMINS/MINERALS THERAP 1 TAB PO SCH (08:02)
[2019-09-03] MEDS: THIAMINE 100 MG TAB PO SCH ×2 (08:02→20:00)
[2019-09-03] MEDS: SPIRONOLACTONE 25 MG TAB PO SCH (08:02)
[2019-09-03] MEDS: OMEPRAZOLE 20 MG CAP PO SCH (08:03)
[2019-09-03] MEDS: MIRALAX *UNIT DOSE* 17GM PACKET PO SCH (08:03)
[2019-09-03] MEDS ORDERED: HYDR-3713 PO (10:55)
[2019-09-03 14:00] VITALS: BP 110/58
[2019-09-03 14:21] VITALS: BP 110/59
--- NOTE | 2019-09-03 15:10 | IPNPDOC ---
Text Note Date of Service The patient was seen on 09/03/19. NOTE SUBJECTIVE: Patient admitted overnight secondary to mechanical fall from slipping on a rug at home causing him to fracture his ankle. No acute events overnight. Denies any fevers, chills, chest pain, difficulty breathing, abdominal pain. OBJECTIVE: PHYSICAL EXAM: Vitals: (see below) General: No acute distress, laying comfortably in bed. HEENT: Normocephalic, atraumatic. EOMI. No scleral icterus. Moist mucous membranes. No pharyngeal erythema or uvular deviation. Neck: No JVD, lymphadenopathy, or thyromegaly. Cardiac: RRR, Normal S1 and S2, No murmurs, gallops, rubs. Pulm: Clear to auscultation b/l. Symmetric thorax. No wheezing, crackles, rhonchi Abd: Bowel Sounds present. Abdomen is soft, non-tender, non-distended. No guarding, rebound tenderness, or rigidity. No hepatosplenomegaly. No masses or eccymosis. Ext: RLE with cast in place, capillary refill<2 seconds, sensation intact. LLE without swelling or edema. Neuro: No focal neuro deficits LABORATORY DATA, MICROBIOLOGY: Please see below. IMAGING STUDIES: ASSESSMENT AND PLAN: This is a 68 year old gentleman who presents after having multiple falls earlier on yesterday. He had a fall early in the morning yesterday. As a result of slipping on a rug he fell onto his right ankle and hit his head; he is not sure if he lost consciousness. He is did not come to the hospital right away; he was able to get some crutches but had difficulties using them and had another fall, therefore he decided to come to the hospital for evaluation. He was evaluated by Dr. Youssef who put a cast on him. The patient reports told that hell need surgery once the swelling goes down. #. Ankle Fx - Orthopedic surgery consulted, recommendations appreciated, Dr. Rangel has set patient up with outpatient appointment with plans for possible surgery this Monday. Patient has not cleared for PT yet. -[place] PRN for pain #. Transient syncope -CT head, c-spine were negative. - Patient not complaining of any additional pain/discomfort or of further syncopal events. #. SIRS -Resolved. #. 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 #.CAD -Continue statin, nitro, hold ASA pending ortho eval #. Obesity with UZAIR -Complicating care. -A1C normal DVT prophylaxis: lovenox DISPOSITION: PT clearance Attending attestation: I evaluated and examined the patient in person; I discussed the care with Resident in detail and agree with the plan above. VS,Fishbone, I+O VS, Fishbone, I+O Laboratory Tests 09/03/19 06:40 Vital Signs Date Time Temp Pulse Resp B/P (MAP) Pulse Ox O2 Delivery O2 Flow Rate FiO2 09/03/19 14:52 110/59 09/03/19 14:51 70 09/03/19 14:21 98.4 18 96 Room Air 09/02/19 02:00 99 09/02/19 00:10 2.0 I&O- Last 24 Hours up to 6 AM 09/03/19 05:59 Intake Total 3170 ml Output Total 1201 ml Balance 1969 ml GME ATTESTATION GME ATTESTATION My faculty preceptor for this patient encounter was physically present during the encounter and was fully available. All aspects of the patient interview, e xamination, medical decision making process, and medical care plan development were reviewed and approved by the faculty preceptor. The faculty preceptor is aware and concurs with the plan as stated in the body of this note and will attest to such by his/her cosignature. JANAE PHAM DO Sep 03, 2019 15:10 ROSALIND CRAWFORD MD September 10, 2019 19:02
[2019-09-03 22:00] VITALS: BP 117/69
[2019-09-04 06:00] VITALS: BP 118/68
[2019-09-04] MEDS: NORCO, ANEXSIA 5/325MG TABLET (HYDROcodone/ACETAMINOPHEN) PO PRN ×4 (06:02→19:02)
[2019-09-04] MEDS: HEPARIN SOD (PORCINE) 5000UNITS/ML VIAL (J1644 PER 1000UNITS) SQ SCH ×3 (06:02→21:36)
[2019-09-04] MEDS: THIAMINE 100 MG TAB PO SCH (08:45)
[2019-09-04] MEDS: MOM 30ML SUSPENSION UDC PO SCH ×2 (08:45→08:52)
[2019-09-04] MEDS: FOLIC ACID 1 MG TAB PO SCH (08:45)
[2019-09-04] MEDS: DOCUSATE SODIUM 100 MG CAP PO SCH ×2 (08:45→21:36)
[2019-09-04] MEDS: MIRALAX *UNIT DOSE* 17GM PACKET PO SCH ×2 (08:45→08:52)
[2019-09-04] MEDS: amLODIPine 10 MG TAB PO SCH (08:45)
[2019-09-04] MEDS: MULTIVITAMINS/MINERALS THERAP 1 TAB PO SCH (08:45)
[2019-09-04] MEDS: VITAMIN D 1,000 INTERNATIONAL UNITS TABLET PO SCH (08:45)
[2019-09-04] MEDS: SPIRONOLACTONE 25 MG TAB PO SCH (08:46)
[2019-09-04] MEDS: **hydrALAZINE HCL** 25 MG TAB PO SCH ×3 (08:46→21:00)
[2019-09-04] MEDS: CARVedilol 6.25 MG TAB PO SCH ×2 (08:46→16:09)
--- NOTE | 2019-09-04 12:13 | IPNPDOC ---
Text Note Date of Service The patient was seen on 09/04/19. NOTE SUBJECTIVE: Patient admitted overnight secondary to mechanical fall from slipping on a rug at home causing him to fracture his ankle. No acute events overnight. Denies fevers, chills, chest pain, difficulty breathing. Per orthopedic surgery he requires pre-operative optimization as he may go to the OR tomorrow. He states he is able to complete 2 mets. OBJECTIVE: PHYSICAL EXAM: Vitals: (see below) General: No acute distress, laying comfortably in bed. HEENT: Normocephalic, atraumatic. EOMI. No scleral icterus. Moist mucous membranes. No pharyngeal erythema or uvular deviation. Neck: No JVD, lymphadenopathy, or thyromegaly. Cardiac: RRR, Normal S1 and S2, No murmurs, gallops, rubs. Pulm: Clear to auscultation b/l. Symmetric thorax. No wheezing, crackles, rho nchi Abd: Bowel Sounds present. Abdomen is soft, non-tender, non-distended. No guarding, rebound tenderness, or rigidity. No hepatosplenomegaly. No masses or eccymosis. Ext: RLE with cast in place, capillary refill<2 seconds, sensation intact. LLE without swelling or edema. Neuro: No focal neuro deficits LABORATORY DATA, MICROBIOLOGY: Please see below. IMAGING STUDIES: ASSESSMENT AND PLAN: #. Pre-operative optimization. -Based on patient's CAD and hx of CHF, his RCRI is 2, placing him at 10% risk for , VT, or heart attack over the next 30 days, making him at moderate risk for this low risk surgical procedure. He is aware of this risk and is comfortable proceeding forward. His BNP level was checked and is borderline at 292 so we will get a post-op EKG and daily troponins. Patient is medically optimized for the procedure. DANY inhibitor and ASA have been held since admission, holding heparin, restart per ortho reccs. #. Ankle Fx - Orthopedic surgery consulted, recommendations appreciated, They plan to evaluate him tomorrow and may take him to the OR at 1600 depending on their findings. -[place] PRN for pain #. 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 Transient syncope -CT head, c-spine were negative. - Patient not complaining of any additional pain/discomfort or of further syncopal events. #. SIRS -Resolved. #.Hypertension -Continue home medications, holding DANY inhibitor in anticipation of possible surgery. #.CAD -Continue statin, nitro, hold ASA #. Obesity with UZAIR -Complicating care. -A1C normal DVT prophylaxis: holding heparin with ortho to resume DISPOSITION: PT clearance Attending attestation: I evaluated and examined the patient in person; I discussed the care with Resident in detail and agree with the plan above. VS,Fishbone, I+O VS, Fishbone, I+O Vital Signs Date Time Temp Pulse Resp B/P (MAP) Pulse Ox O2 Delivery O2 Flow Rate FiO2 09/04/19 10:51 18 09/04/19 08:46 118/68 09/04/19 08:46 60 09/04/19 06:32 Room Air 09/04/19 06:00 98.6 96 09/02/19 02:00 99 09/02/19 00:10 2.0 I&O- Last 24 Hours up to 6 AM 09/04/19 06:00 Intake Total 1380 ml Output Total 450 ml Balance 930 ml GME ATTESTATION GME ATTESTATION My faculty preceptor for this patient encounter was physically present during the encounter and was fully available. All aspects of the patient interview, examination, medical decision making process, and medical care plan development were reviewed and approved by the faculty preceptor. The faculty preceptor is aware and concurs with the plan as stated in the body of this note and will attest to such by his/her cosignature. JANAE PHAM DO Sep 04, 2019 12:13 ROSALIND CRAWFORD MD September 10, 2019 19:09
[2019-09-04 14:00] VITALS: BP 119/66
[2019-09-04 21:00] VITALS: BP 142/69
[2019-09-04] MEDS: SIMVASTATIN 40 MG TAB PO SCH (21:36)
[2019-09-04 22:00] VITALS: BP 131/63
[2019-09-05] VITALS (8 sets, daily range): BP systolic 139–164; BP diastolic 68–76
[2019-09-05] MEDS ORDERED: ceFAZolin SOD 2 GM in IV 1 EA IV ONE (06:00)
[2019-09-05] MEDS: OMEPRAZOLE 20 MG CAP PO SCH (08:26)
[2019-09-05] MEDS: NORCO, ANEXSIA 5/325MG TABLET (HYDROcodone/ACETAMINOPHEN) PO PRN (08:26)
[2019-09-05] MEDS: VITAMIN D 1,000 INTERNATIONAL UNITS TABLET PO SCH (08:26)
[2019-09-05] MEDS: amLODIPine 10 MG TAB PO SCH (08:26)
[2019-09-05] MEDS: CARVedilol 6.25 MG TAB PO SCH ×2 (08:27→19:52)
[2019-09-05] MEDS: **hydrALAZINE HCL** 25 MG TAB PO SCH ×4 (08:27→22:19)
[2019-09-05] MEDS: SPIRONOLACTONE 25 MG TAB PO SCH (08:27)
[2019-09-05] MEDS ORDERED: MIDAZOLAM INJ 2MG/2ML VIAL (J2250 PER 1MG) As Ordered ONE (15:28)
[2019-09-05] MEDS ORDERED: propofoL 200 MG/20 ML VIAL As Ordered ONE ×2 (15:29→16:55)
[2019-09-05] MEDS ORDERED: ONDANSETRON 4MG/2ML VIAL As Ordered ONE ×2 (15:29→19:02)
[2019-09-05] MEDS ORDERED: LIDOCAINE 2% 100MG/5ML SDV (FOR ANES.) As Ordered ONE (15:29)
[2019-09-05] MEDS ORDERED: dexameTHASONE 4 MG/ML 1ML VIAL (J1100 PER 1MG) As Ordered ONE ×2 (15:29→16:50)
[2019-09-05] MEDS ORDERED: fentaNYL 100 MCG/2 ML INJECTION (J3010) As Ordered ONE ×3 (15:29→18:24)
[2019-09-05] MEDS ORDERED: ceFAZolin 2 GM/D5W 50 ML IV BAG (J0690 PER 500MG) As Ordered ONE (15:43)
[2019-09-05] MEDS ORDERED: SUGAMMADEX SODIUM 500 MG/5 ML VIAL (BRIDION) As Ordered ONE (15:47)
[2019-09-05] MEDS ORDERED: ROCURONIUM BROMIDE 50 MG/5 ML VIAL As Ordered ONE (15:47)
[2019-09-05] MEDS ORDERED: BUPIVACAINE HCL 0.5% 30 ML VIAL As Ordered ONE (16:39)
[2019-09-05] MEDS ORDERED: BUPIVACAINE HCL 0.25% 30ML VIAL As Ordered ONE (16:39)
[2019-09-05] MEDS ORDERED: KETOROLAC 60 MG/2 ML VIAL As Ordered ONE (16:52)
[2019-09-05] MEDS ORDERED: ACETAMINOPHEN 1000MG 100ML IV BTL (OFIRMEV) (J0131 PER 10MG) As Ordered ONE (16:52)
--- NOTE | 2019-09-05 16:52 | IPNPDOC ---
Text Note Date of Service The patient was seen on 09/05/19. NOTE SUBJECTIVE: Patient admitted overnight secondary to mechanical fall from slipping on a rug at home causing him to fracture his ankle. No acute events overnight. Denies fevers, chills, chest pain, difficulty breathing. Awaiting possible surgery today at 1600. OBJECTIVE: PHYSICAL EXAM: Vitals: (see below) General: No acute distress, laying comfortably in bed. HEENT: Normocephalic, atraumatic. EOMI. No scleral icterus. Moist mucous membranes. No pharyngeal erythema or uvular deviation. Neck: No JVD, lymphadenopathy, or thyromegaly. Cardiac: RRR, Normal S1 and S2, No murmurs, gallops, rubs. Pulm: Clear to auscultation b/l. Symmetric thorax. No wheezing, crackles, rhonchi Abd: Bowel Sounds present. Abdomen is soft, non-tender, non-distended. No guarding, rebound tenderness, or rigidity. No hepatosplenomegaly. No masses or eccymosis. Ext: RLE with cast in place, capillary refill<2 seconds, sensation intact. LLE without swelling or edema. Neuro: No focal neuro deficits LABORATORY DATA, MICROBIOLOGY: Please see below. IMAGING STUDIES: ASSESSMENT AND PLAN: #. Pre-operative optimization. -Plans to proceed forward with surgery per Ortho determinations. Based on patient's CAD and hx of CHF, his RCRI is 2, placing him at 10% risk for , MD, or heart attack over the next 30 days, making him at moderate risk for this low risk surgical procedure. He is aware of this risk and is comfortable proceeding forward. His BNP level was checked and is borderline at 292 so we will get a post-op EKG and daily troponins. Patient is medically optimized for the procedure. DANY inhibitor and ASA have been held since admission, holding heparin, restart per ortho reccs. #. Ankle Fx - Orthopedic surgery consulted, recommendations appreciated, possible OR at 1600 today. -[place] PRN for pain #. 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 Transient syncope -CT head, c-spine were negative. - Patient not complaining of any additional pain/discomfort or of further syncopal events. #. SIRS -Resolved. #. Hypertension -Continue home medications, holding DANY inhibitor in anticipation of possible surgery. #. CAD -Continue statin, nitro, hold ASA #. Obesity with UZAIR -Complicating care. -A1C normal DVT prophylaxis: holding heparin with ortho to resume DISPOSITION: PT clearance, surgery Attending attestation: I evaluated and examined the patient in person; I discussed the care with Resident in detail and agree with the plan above. VS,Fishbone, I+O VS, Fishbone, I+O Vital Signs Date Time Temp Pulse Resp B/P (MAP) Pulse Ox O2 Delivery O2 Flow Rate FiO2 09/05/19 08:56 18 09/05/19 08:27 164/74 09/05/19 08:27 46 09/05/19 06:00 97.8 95 Room Air 09/02/19 02:00 99 09/02/19 00:10 2.0 I&O- Last 24 Hours up to 6 AM 09/05/19 06:00 Intake Total 1395 ml Output Total 200 ml Balance 1195 ml GME ATTESTATION GME ATTESTATION My faculty preceptor for this patient encounter was physically present during the encounter and was fully available. All aspects of the patient interview, examination, medical decision making process, and medical care plan development were reviewed and approved by the faculty preceptor. The faculty preceptor is aware and concurs with the plan as stated in the body of this note and will attest to such by his/her cosignature. JANAE PHAM DO Sep 05, 2019 16:52 ROSALIND CRAWFORD MD September 10, 2019 19:21
[2019-09-05] MEDS ORDERED: PHENYLephrine HCL 500 MCG/5 ML (100MCG/ML) SYRINGE (J2370) As Ordered ONE (17:32)
[2019-09-05] MEDS ORDERED: ePHEDrine SULFATE 25 MG/5 ML(5MG/ML) SYRINGE As Ordered ONE (17:32)
[2019-09-05] MEDS ORDERED: oxyCODONE 5MG TAB As Ordered ONE ×2 (19:02→19:33)
[2019-09-05] MEDS: oxyCODONE 5MG TAB PO PRN ×2 (19:06→19:37)
[2019-09-05] MEDS ORDERED: HYDROMORPHONE HCL 0.5 MG/ 0.5 ML SYRINGE (J1170 PER 1) As Ordered ONE ×2 (19:09→19:33)
[2019-09-05] MEDS: HYDROMORPHONE HCL 0.5 MG/ 0.5 ML SYRINGE (J1170 PER 1) IV PRN ×4 (19:12→19:53)
[2019-09-05] MEDS ORDERED: LR 1,000 ML IV SCH (19:15)
[2019-09-05] MEDS ORDERED: ONDANSETRON 4MG/2ML VIAL IV PRN (19:15)
[2019-09-05] MEDS ORDERED: oxyCODONE 5MG TAB PO PRN ×2 (19:15)
[2019-09-05] MEDS ORDERED: fentaNYL 100 MCG/2 ML INJECTION (J3010) IV PRN (19:15)
[2019-09-05] MEDS ORDERED: CARVedilol 6.25 MG TAB As Ordered ONE (19:45)
--- NOTE | 2019-09-05 19:47 | ECGEPIP ---
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
[2019-09-05] MEDS: ACETAMINOPHEN 500 MG TAB PO SCH (22:11)
--- NOTE | 2019-09-05 23:12 | REP ---
C-ARM VIEWS OF RIGHT ANKLE: Multiple C-arm views of right ankle performed. There is placement of metallic internal fixation in the distal fibula for a fracture at that location. The osseous structures are well aligned. The ankle mortise is anatomic. Fluoroscopy time: 66 seconds. Electronically Signed by Lm Guerra MD 09/06/2019 09:33 A
[2019-09-06] MEDS: ceFAZolin SOD 2 GM in IV 1 EA IV SCH ×2 (01:14→08:13)
[2019-09-06 02:00] VITALS: BP 140/62
[2019-09-06 04:30] VITALS: BP 137/66
[2019-09-06] MEDS: ACETAMINOPHEN 500 MG TAB PO SCH (05:45)
[2019-09-06 05:50] VITALS: BP 137/66
[2019-09-06] MEDS ORDERED: HYDR-3713 PO (06:54)
[2019-09-06] MEDS ORDERED: ASPI81TA26 PO (07:03)
[2019-09-06 08:02] LABS: HEMATOCRIT 38.5 % (42.0-52.0); MEAN CORPUSCULAR HEMOGLOBIN 32.7 pg (27.0-33.0); MEAN CORPUSCULAR HGB CONC 33.8 g/dl (32.0-36.5); PLATELET COUNT, AUTOMATED 178 10^3/uL (150-450); RED BLOOD COUNT 3.97 10^6/uL (4.30-6.10); WHITE BLOOD COUNT 8.9 10^3/uL (4.0-10.0)
[2019-09-06 08:06] LABS: BLOOD UREA NITROGEN 17 MG/DL (7-18); CALCIUM LEVEL 8.8 MG/DL (8.8-10.2); CARBON DIOXIDE LEVEL 21 MEQ/L (21-32); CHLORIDE LEVEL 107 MEQ/L (98-107); CREATININE FOR GFR 1.08 MG/DL (0.70-1.30); GLOMERULAR FILTRATION RATE > 60.0 (>49); GLUCOSE, FASTING 92 MG/DL (70-100); POTASSIUM SERUM 4.4 MEQ/L (3.5-5.1); SODIUM LEVEL 136 MEQ/L (136-145); TROPONIN I < 0.02 NG/ML (< 0.10)
[2019-09-06] MEDS: VITAMIN D 1,000 INTERNATIONAL UNITS TABLET PO SCH (08:09)
[2019-09-06] MEDS: SPIRONOLACTONE 25 MG TAB PO SCH (08:09)
[2019-09-06 08:12] VITALS: BP 118/65
[2019-09-06] MEDS: amLODIPine 10 MG TAB PO SCH (08:12)
[2019-09-06] MEDS: **hydrALAZINE HCL** 25 MG TAB PO SCH (08:12)
[2019-09-06] MEDS: CARVedilol 6.25 MG TAB PO SCH (08:13)
[2019-09-06 08:20] VITALS: BP 118/68
[2019-09-06] MEDS ORDERED: DOCUSATE SODIUM 100 MG CAP PO SCH (09:00)
[2019-09-06 10:00] VITALS: BP 136/69
[2019-09-06] MEDS ORDERED: RIVAROXABAN 10 MG TAB (XARELTO) PO SCH (18:00)
--- NOTE | 2019-09-07 20:06 | DS.PDOC ---
Discharge Summary General Date of Admission Sep 02, 2019 at 00:18 Date of Discharge 09/06/2019 Attending Physician: ROSALIND CRAWFORD MD Specialist/Consultants Involve: ZION LAURA MD Discharge Summary PROCEDURES PERFORMED DURING STAY: open reduction, internal fixation of right ankle, conscious sedation with reduction and splinting of right ankle. ADMITTING/DISCHARGE DIAGNOSES: Right ankle fracture Chronic CAD status post stent placement Pacemaker placement. Chronic Hypertension Dyslipidemia UZAIR Class I Obesity He denies having a stroke, or diabetes History of back surgery COMPLICATIONS/CHIEF COMPLAINT: HISTORY OF PRESENT ILLNESS/HOSPITAL COURSE: Patient is a 68 year old male who presented after mechanical fall from slipping on a rug at home causing him to fracture his ankle. Overnight, Dr. Youssef with orthopedic surgery was consulted and the patient underwent conscious sedation for reduction and splinting of his fracture. The patient participated in physical therapy and there was consideration of discharge Monday however the patient still had not cleared PT so orthopedic surgery asked for pre-operative evaluation of the patient with consideration of surgery on . Ultimately, the patient underwent surgery by Dr. Laura on 09/05/2019 for open reduction internal fixation of the right ankle and discharged per orthopedic surgery the following day with home health. DISCHARGE MEDICATIONS: Please see below. ALLERGIES: Please see below. Vitals: (see below) General: No acute distress, laying comfortably in bed. HEENT: Normocephalic, atraumatic. EOMI. No scleral icterus. Moist mucous membranes. No pharyngeal erythema or uvular deviation. Neck: No JVD, lymphadenopathy, or thyromegaly. Cardiac: RRR, Normal S1 and S2, No murmurs, gallops, rubs. Pulm: Clear to auscultation b/l. Symmetric thorax. No wheezing, crackles, rhonchi Abd: Bowel Sounds present. Abdomen is soft, non-tender, non-distended. No guarding, rebound tenderness, or rigidity. No hepatosplenomegaly. No masses or eccymosis. Ext: RLE with cast in place, capillary refill<2 seconds, sensation intact. LLE without swelling or edema. Neuro: No focal neuro deficits Psych: Appropriate affect LABORATORY DATA: Please see below. IMAGIN09/01/[address]: Atrophy and chronic white matter changes. No acute intracranial abnormality. 09/01/2019 ankle x-ray: Trimalleolar fracture dislocation. 09/01/[address]: 1. No fracture or malalignment. 2. Advanced degenerative spondylosis as above. 09/02/2019 CT ankle without contrast right: 1. Comminuted fracture dislocation of the lateral malleolus and posterior tibial plafond. 2. Mild lateral subluxation of the talus. 3. Small loose bodies in the medial lateral ankle joint space. 09/05/2019 fluoroscopy: There is placement of metallic internal fixation the distal fibula for a fracture at that location. The osseous structures are well aligned. The ankle mortise is anatomic. PROGNOSIS: stable ACTIVITY: Non-weight bearing and walking with walker DIET: As tolerated DISCHARGE PLAN: home with home health care DISCHARGE INSTRUCTIONS: 1. Keep leg elevated on 3 pillows as much as possible. May ice ankle. ITEMS TO FOLLOWUP ON ON OUTPATIENT: 1. Follow up with Dr. Laura on 09/19/2019 DISCHARGE CONDITION: Stable. TIME SPENT ON DISCHARGE: 35 minutes Vital Signs/I&Os Vital Signs Date Time Temp Pulse Resp B/P (MAP) Pulse Ox O2 Delivery O2 Flow Rate FiO2 09/06/19 10:00 98.3 61 19 136/69 (91) 97 Room Air 09/05/19 18:52 10 09/02/19 02:00 99 I&O- Last 24 Hours up to 6 AM 09/07/19 06:00 Intake Total 300 ml Output Total 0 ml Balance 300 ml Discharge Medications Scheduled Amlodipine Besylate (Amlodipine Besylate) 10 Mg Tab, 10 MG PO DAILY, (Reported) Aspirin (Aspirin EC) 81 Mg Tab, 81 MG PO BID Carvedilol (Carvedilol) 6.25 Mg Tab, 6.25 MG PO BID, (Reported) TAKES 0900 AND 1600 Cholecalciferol (Vitamin D3) (Vitamin D3) 1,000 Unit Tablet, 1,000 UNITS PO DAILY, (Reported) Nitroglycerin (Nitroglycerin) 0.4 Mg Sub, 0.4 MG PO NITRO, (Reported) Omeprazole (Omeprazole) 40 Mg Cap, 40 MG PO Q2D, (Reported) Ramipril (Ramipril) 10 Mg Cap, 20 MG PO QPM, (Reported) Simvastatin (Simvastatin) 40 Mg Tab, 40 MG PO QHS, (Reported) Q2D Spironolactone (Spironolactone) 25 Mg Tab, 25 MG PO DAILY, (Reported) Scheduled PRN Hydrocodone/Acetaminophen (Hydrocodone-Acetamin 5-325 mg) 1 Each Tablet, 1-2 TAB PO Q4H PRN for PAIN Allergies Coded Allergies: No Known Allergies (Unverified , 09/01/19) GME ATTESTATION GME ATTESTATION My faculty preceptor for this patient encounter was physically present during the encounter and was fully available. All aspects of the patient interview, examination, medical decision making process, and medical care plan development were reviewed and approved by the faculty preceptor. The faculty preceptor is aware and concurs with the plan as stated in the body of this note and will attest to such by his/her cosignature. JANAE PHAM DO September 07, 2019 20:06
--- NOTE | 2019-09-10 10:04 | RO ---
DATE OF PROCEDURE: 09/05/2019 PREPROCEDURE DIAGNOSIS: Right bimalleolar ankle fracture. POSTPROCEDURE DIAGNOSIS: Right bimalleolar ankle fracture. PROCEDURE: Open reduction internal fixation of right ankle. SURGEON: Dr. Anu Hightower INSTRUCTIONAL SUPPORT ASSISTANT: None. ANESTHESIA: General endotracheal. ESTIMATED BLOOD LOSS: 25 mL. COMPLICATIONS: None. CONDITION: Stable to recovery. IMPLANTS: Arthrex walking plate and associated 2.7 mm and 3.5 mm screws. INDICATION: Jj Grewal is a 68-year-old male who suffered a mechanical fall resulting in a right bimalleolar ankle fracture. He was seen by my partner Dr. Youssef and underwent a preliminary reduction. The patient was referred to me for further fixation. Risks and benefits of the surgery were discussed with the patient in detail and include but are not limited to infection, damage to nerves and blood vessels, continued pain and stiffness, need for additional procedures. Informed consent was obtained. Patient's soft tissue also was checked before surgery and was amenable for fixation. DESCRIPTION OF PROCEDURE: The patient was met in the preoperative holding area where the right lower extremity was marked as the correct operative site. He was taken to the operating room and placed in the supine position in the operating room table. Bony prominences were well padded. He underwent general anesthesia. A well-padded tourniquet was placed on the right upper thigh. A Venodyne boot was placed on the left leg. Chlorhexidine scrub was performed of the right lower extremity except around the area of a small medial site of fracture blister. Right lower extremity was then prepped and draped in a normal sterile fashion. He received antibiotics within 60 minutes prior to incision. An incision made over the posterolateral aspect of the fibula. The fracture was identified. It was cleaned of hematoma and debris. It was reduced using a series of pointed reduction clamps. A 2.7 mm lag screw was then placed across the fracture site. The patient's bone was quite soft and thus a smaller screw was used to avoid any further fracture at the region of the main fracture. I then selected an Arthrex walking plate. It was secured distally with 2.7 mm locking and one nonlocking screw. Proximally it was secured with 3.5 mm cortical screws. There was satisfactory reduction replacement on AP and lateral and mortise views. I performed both a Cotton and external rotation stress test and these were both negative. It was not necessary to place a syndesmotic screw. Following this, copious irrigation was performed. The tissues were closed using #2-0 Vicryl and subcutaneous tissues were closed using #3-0 Vicryl. Skin was closed using #3-0 nylon. Patient was placed into a well-padded splint after sterile dressings were applied. He was extubated and transferred to the recovery room in stable condition. Prior to incision, the patient's leg had been exsanguinated and tourniquet was elevated to 250 mmHg. It was up for just over 1 hour. PLAN: Patient will be non-weightbearing in the right lower extremity for 6 weeks. I will speak to his medical team regarding deep venous thrombosis (DVT) prophylaxis as such, he will need Xarelto. He will be on antibiotics for 24 hours.
== END 2019-09-06 14:45 | disposition home health service (06) | DRG 493 ==
LOC: M ED 21:35 → M ED INP 09-02 00:18 → ENRESERV 09-02 00:45 → M MS5PR 09-02 01:29
PROVIDERS: ADMIT Internal Medicine; ATTEND Internal Medicine
PROC: 0QSGXZZ Reposition Right Tibia, External Approach (ICD-10-PCS; principal; 2019-09-02)
PROC: 2W3QX2Z Immobilization of Right Lower Leg using Cast (ICD-10-PCS; 2019-09-02)
PROC: 0QSJ04Z Reposition Right Fibula with Internal Fixation Device, Open Approach (ICD-10-PCS; 2019-09-05)
DX: S82.841A Displaced bimalleolar fracture of right lower leg, initial encounter for closed fracture (principal); I50.42 Chronic combined systolic (congestive) and diastolic (congestive) heart failure; R65.10 Systemic inflammatory response syndrome (SIRS) of non-infectious origin without acute organ dysfunction; W18.09XA Striking against other object with subsequent fall, initial encounter; Y92.009 Unspecified place in unspecified non-institutional (private) residence as the place of occurrence of the external cause; X50.1XXA Overexertion from prolonged static or awkward postures, initial encounter; K21.9 Gastro-esophageal reflux disease without esophagitis; Z95.0 Presence of cardiac pacemaker; I11.0 Hypertensive heart disease with heart failure; E78.5 Hyperlipidemia, unspecified; G47.33 Obstructive sleep apnea (adult) (pediatric); E66.9 Obesity, unspecified; I25.2 Old myocardial infarction; F17.200 Nicotine dependence, unspecified, uncomplicated; R55 Syncope and collapse; F10.10 Alcohol abuse, uncomplicated; I25.10 Atherosclerotic heart disease of native coronary artery without angina pectoris; Z79.82 Long term (current) use of aspirin; Z79.899 Other long term (current) drug therapy; Y99.8 Other external cause status; Z68.34 Body mass index [BMI] 34.0-34.9, adult

== ENCOUNTER → 2019-09-19 | Outpatient (REF) | payer MEDICARE ==
[~2019-09-19] MED LIST changes: +HYDR-3713 PO; +VITAD1000T PO
[2019-09-19 10:54] LABS: BASO # 0.1 10^3/uL (0.0-0.2); BASO % 0.8 % (0.0-1.0); EOS # 0.2 10^3/uL (0.0-0.5); EOS % 2.4 % (0.0-3.0); HEMATOCRIT 43.9 % (42.0-52.0); HEMOGLOBIN 14.9 g/dl (13.5-17.5); LYMPH # 2.2 10^3/uL (1.5-5.0); LYMPH % 25.9 % (24.0-44.0); MEAN CORPUSCULAR HEMOGLOBIN 33.3 pg (27.0-33.0); MEAN CORPUSCULAR HGB CONC 33.9 g/dl (32.0-36.5); MEAN CORPUSCULAR VOLUME 98.2 fl (80.0-96.0); MONO # 0.7 10^3/uL (0.0-0.8); MONO % 8.8 % (0.0-5.0); NEUTROPHILS # 5.2 10^3/uL (1.5-8.5); NEUTROPHILS % 61.6 % (36.0-66.0); PLATELET COUNT, AUTOMATED 256 10^3/uL (150-450); RED BLOOD COUNT 4.47 10^6/uL (4.30-6.10); WHITE BLOOD COUNT 8.4 10^3/uL (4.0-10.0)
[2019-09-19 13:31] LABS: ALBUMIN 3.4 GM/DL (3.2-5.2); ALT/SGPT 21 U/L (12-78); BILIRUBIN,TOTAL 0.5 MG/DL (0.2-1.0); BLOOD UREA NITROGEN 15 MG/DL (7-18); CARBON DIOXIDE LEVEL 23 MEQ/L (21-32); CHLORIDE LEVEL 107 MEQ/L (98-107); CHOLESTEROL LEVEL 122 MG/DL (<200); CHOLESTEROL RISK RATIO 3.696 (<5); CREATININE FOR GFR 1.13 MG/DL (0.70-1.30); GLOMERULAR FILTRATION RATE > 60.0 (>49); GLUCOSE, FASTING 98 MG/DL (70-100); HDL CHOLESTEROL 33 MG/DL (>40); LDL CHOLESTEROL 72 MG/DL (<100); NON-HDL-C 89 MG/DL; POTASSIUM SERUM 4.6 MEQ/L (3.5-5.1); SODIUM LEVEL 138 MEQ/L (136-145); TOTAL PROTEIN 6.7 GM/DL (6.4-8.2); TRIGLYCERIDES LEVEL 85 MG/DL (<150)
== END ==
LOC: M SHH 10:20
PROVIDERS: ATTEND Family Medicine
DX: I10 Essential (primary) hypertension (principal); E78.2 Mixed hyperlipidemia

== ENCOUNTER → 2019-11-22 | Outpatient (CLI) | payer MEDICARE ==
[~2019-11-22] MED LIST changes: -AMLO10TA5 PO; +AMLO1TAB24 PO; +AMLO1TAB25 PO; -AMLO5TAB6 PO; +D31000TA2 PO; -VITAD1000T PO
[2019-11-22 15:23] LABS: BASO # 0.1 10^3/uL (0.0-0.2); BASO % 0.8 % (0.0-1.0); EOS # 0.1 10^3/uL (0.0-0.5); EOS % 1.3 % (0.0-3.0); HEMATOCRIT 46.4 % (42.0-52.0); HEMOGLOBIN 15.3 g/dl (13.5-17.5); LYMPH % 34.9 % (24.0-44.0); MEAN CORPUSCULAR HEMOGLOBIN 32.8 pg (27.0-33.0); MEAN CORPUSCULAR VOLUME 99.4 fl (80.0-96.0); MONO # 0.7 10^3/uL (0.0-0.8); MONO % 7.8 % (0.0-5.0); NEUTROPHILS # 4.7 10^3/uL (1.5-8.5); NEUTROPHILS % 54.8 % (36.0-66.0); PLATELET COUNT, AUTOMATED 198 10^3/uL (150-450); RED BLOOD COUNT 4.67 10^6/uL (4.30-6.10); WHITE BLOOD COUNT 8.6 10^3/uL (4.0-10.0)
[2019-11-22 15:35] LABS: ALBUMIN 3.6 GM/DL (3.2-5.2); ALT/SGPT 14 U/L (12-78); BILIRUBIN,TOTAL 0.3 MG/DL (0.2-1.0); BLOOD UREA NITROGEN 14 MG/DL (7-18); CALCIUM LEVEL 9.1 MG/DL (8.8-10.2); CARBON DIOXIDE LEVEL 29 MEQ/L (21-32); CHLORIDE LEVEL 107 MEQ/L (98-107); CHOLESTEROL LEVEL 129 MG/DL (<200); CHOLESTEROL RISK RATIO 4.161 (<5); CREATININE FOR GFR 1.18 MG/DL (0.70-1.30); GLOMERULAR FILTRATION RATE > 60.0 (>49); GLUCOSE, FASTING 55 MG/DL (70-100); HDL CHOLESTEROL 31 MG/DL (>40); LDL CHOLESTEROL 70 MG/DL (<100); NON-HDL-C 98 MG/DL; SODIUM LEVEL 140 MEQ/L (136-145); TOTAL PROTEIN 6.9 GM/DL (6.4-8.2); TRIGLYCERIDES LEVEL 141 MG/DL (<150)
== END ==
LOC: M PLALAB 12:55
PROVIDERS: ATTEND Family Medicine
DX: E78.2 Mixed hyperlipidemia (principal); I10 Essential (primary) hypertension; I67.2 Cerebral atherosclerosis

== ENCOUNTER → 2020-02-24 | Outpatient (CLI) | payer MEDICARE ==
[2020-02-24 14:54] LABS: BASO % 0.6 % (0.0-1.0); EOS # 0.2 10^3/uL (0.0-0.5); EOS % 2.7 % (0.0-3.0); HEMATOCRIT 49.3 % (42.0-52.0); HEMOGLOBIN 15.7 g/dl (13.5-17.5); LYMPH # 2.2 10^3/uL (1.5-5.0); LYMPH % 31.8 % (24.0-44.0); MEAN CORPUSCULAR HEMOGLOBIN 31.7 pg (27.0-33.0); MEAN CORPUSCULAR HGB CONC 31.8 g/dl (32.0-36.5); MEAN CORPUSCULAR VOLUME 99.6 fl (80.0-96.0); MONO # 0.6 10^3/uL (0.0-0.8); MONO % 8.1 % (0.0-5.0); NEUTROPHILS # 3.9 10^3/uL (1.5-8.5); NEUTROPHILS % 56.5 % (36.0-66.0); PLATELET COUNT, AUTOMATED 196 10^3/uL (150-450); RED BLOOD COUNT 4.95 10^6/uL (4.30-6.10); WHITE BLOOD COUNT 6.9 10^3/uL (4.0-10.0)
[2020-02-24 15:10] LABS: BLOOD UREA NITROGEN 17 MG/DL (7-18); CALCIUM LEVEL 9.8 MG/DL (8.8-10.2); CARBON DIOXIDE LEVEL 27 MEQ/L (21-32); CHLORIDE LEVEL 110 MEQ/L (98-107); GLOMERULAR FILTRATION RATE > 60.0 (>42); GLUCOSE, FASTING 84 MG/DL (70-100); POTASSIUM SERUM 4.7 MEQ/L (3.5-5.1); SODIUM LEVEL 139 MEQ/L (136-145)
[2020-02-25 23:07] LABS: PSA TOTAL 0.4 ng/mL (0.0-4.0)
== END ==
LOC: M PLALAB 08:48
PROVIDERS: ATTEND Physician Assistant
DX: I10 Essential (primary) hypertension (principal); G47.33 Obstructive sleep apnea (adult) (pediatric); Z12.5 Encounter for screening for malignant neoplasm of prostate; R97.20 Elevated prostate specific antigen [PSA]

== ENCOUNTER → 2020-05-26 | Outpatient (CLI) | payer MEDICARE ==
[~2020-05-26] MED LIST changes: +GABA-282 PO; -GABA-843 PO
[2020-05-26 11:27] LABS: BASO # 0.1 10^3/uL (0.0-0.2); BASO % 0.8 % (0.0-1.0); EOS # 0.2 10^3/uL (0.0-0.5); EOS % 3.1 % (0.0-3.0); HEMATOCRIT 48.4 % (42.0-52.0); HEMOGLOBIN 15.8 g/dl (13.5-17.5); LYMPH # 2.1 10^3/uL (1.5-5.0); LYMPH % 32.6 % (24.0-44.0); MEAN CORPUSCULAR HEMOGLOBIN 32.1 pg (27.0-33.0); MEAN CORPUSCULAR HGB CONC 32.6 g/dl (32.0-36.5); MEAN CORPUSCULAR VOLUME 98.4 fl (80.0-96.0); MONO # 0.5 10^3/uL (0.0-0.8); MONO % 7.5 % (0.0-5.0); NEUTROPHILS # 3.6 10^3/uL (1.5-8.5); NEUTROPHILS % 55.7 % (36.0-66.0); PLATELET COUNT, AUTOMATED 182 10^3/uL (150-450); RED BLOOD COUNT 4.92 10^6/uL (4.30-6.10); WHITE BLOOD COUNT 6.4 10^3/uL (4.0-10.0)
[2020-05-26 11:53] LABS: ALBUMIN 3.7 GM/DL (3.2-5.2); BILIRUBIN,TOTAL 0.5 MG/DL (0.2-1.0); CALCIUM LEVEL 9.2 MG/DL (8.8-10.2); CHOLESTEROL RISK RATIO 4.312 (<5); CREATININE FOR GFR 1.29 MG/DL (0.70-1.30); FREE T4 0.94 NG/DL (0.76-1.46); GLOMERULAR FILTRATION RATE 58.6 (>42); POTASSIUM SERUM 4.6 MEQ/L (3.5-5.1); THYROID STIMULATING HORMONE 2.89 uIU/ML (0.358-3.740); TOTAL PROTEIN 6.7 GM/DL (6.4-8.2)
== END ==
LOC: M PLALAB 08:20
PROVIDERS: ATTEND Family Medicine
DX: I10 Essential (primary) hypertension (principal); E78.2 Mixed hyperlipidemia

== ENCOUNTER → 2020-11-23 | Outpatient (CLI) | payer MEDICARE ==
[~2020-11-23] MED LIST changes: +OMEP40CA4 PO; -OMEP40CA97 PO
[2020-11-23 10:40] LABS: BASO # 0.1 10^3/uL (0.0-0.2); BASO % 0.9 % (0.0-1.0); EOS # 0.3 10^3/uL (0.0-0.5); EOS % 3.8 % (0.0-3.0); HEMATOCRIT 50.4 % (42.0-52.0); HEMOGLOBIN 16.9 g/dl (13.5-17.5); LYMPH # 1.8 10^3/uL (1.5-5.0); LYMPH % 25.8 % (24.0-44.0); MEAN CORPUSCULAR HEMOGLOBIN 33.7 pg (27.0-33.0); MEAN CORPUSCULAR HGB CONC 33.5 g/dl (32.0-36.5); MEAN CORPUSCULAR VOLUME 100.6 fl (80.0-96.0); MONO # 0.6 10^3/uL (0.0-0.8); MONO % 8.4 % (2.0-8.0); NEUTROPHILS # 4.2 10^3/uL (1.5-8.5); NEUTROPHILS % 60.8 % (36.0-66.0); PLATELET COUNT, AUTOMATED 140 10^3/uL (150-450); RED BLOOD COUNT 5.01 10^6/uL (4.30-6.10); WHITE BLOOD COUNT 6.9 10^3/uL (4.0-10.0)
[2020-11-23 11:10] LABS: ALBUMIN 3.6 GM/DL (3.2-5.2); ALT/SGPT 21 U/L (12-78); BILIRUBIN,TOTAL 0.5 MG/DL (0.2-1.0); BLOOD UREA NITROGEN 13 MG/DL (7-18); CALCIUM LEVEL 9.1 MG/DL (8.8-10.2); CARBON DIOXIDE LEVEL 27 MEQ/L (21-32); CHLORIDE LEVEL 110 MEQ/L (98-107); CHOLESTEROL LEVEL 136 MG/DL (<200); CHOLESTEROL RISK RATIO 4.121 (<5); CREATININE FOR GFR 1.23 MG/DL (0.70-1.30); FREE T4 1.06 NG/DL (0.76-1.46); GLOMERULAR FILTRATION RATE > 60.0 (>42); GLUCOSE, FASTING 87 MG/DL (70-100); HDL CHOLESTEROL 33 MG/DL (>40); LDL CHOLESTEROL 90 MG/DL (<100); NON-HDL-C 103 MG/DL; POTASSIUM SERUM 5.1 MEQ/L (3.5-5.1); SODIUM LEVEL 141 MEQ/L (136-145); TOTAL PROTEIN 6.9 GM/DL (6.4-8.2); TRIGLYCERIDES LEVEL 65 MG/DL (<150)
[2020-11-24 23:07] LABS: PSA TOTAL 0.4 ng/mL (0.0-4.0)
== END ==
LOC: M PLALAB 08:49
PROVIDERS: ATTEND Family Medicine
DX: I10 Essential (primary) hypertension (principal); R97.20 Elevated prostate specific antigen [PSA]

== ENCOUNTER → 2021-02-23 | Outpatient (CLI) | payer MEDICARE ==
[2021-02-23 11:02] LABS: BASO # 0.1 10^3/uL (0.0-0.2); BASO % 0.9 % (0.0-1.0); EOS # 0.3 10^3/uL (0.0-0.5); HEMATOCRIT 49.7 % (42.0-52.0); HEMOGLOBIN 16.9 g/dl (13.5-17.5); LYMPH # 1.9 10^3/uL (1.5-5.0); LYMPH % 28.7 % (24.0-44.0); MEAN CORPUSCULAR HEMOGLOBIN 32.9 pg (27.0-33.0); MEAN CORPUSCULAR VOLUME 96.9 fl (80.0-96.0); MONO # 0.5 10^3/uL (0.0-0.8); MONO % 7.5 % (2.0-8.0); NEUTROPHILS % 58.6 % (36.0-66.0); PLATELET COUNT, AUTOMATED 196 10^3/uL (150-450); RED BLOOD COUNT 5.13 10^6/uL (4.30-6.10); WHITE BLOOD COUNT 6.8 10^3/uL (4.0-10.0)
[2021-02-23 11:43] LABS: ALBUMIN 3.5 GM/DL (3.2-5.2); BILIRUBIN,TOTAL 0.4 MG/DL (0.2-1.0); CALCIUM LEVEL 9.4 MG/DL (8.8-10.2); CHOLESTEROL RISK RATIO 4.218 (<5); CREATININE FOR GFR 1.33 MG/DL (0.70-1.30); FREE T4 1.04 NG/DL (0.76-1.46); GLOMERULAR FILTRATION RATE 56.4 (>42); POTASSIUM SERUM 4.6 MEQ/L (3.5-5.1); THYROID STIMULATING HORMONE 2.12 uIU/ML (0.358-3.740); TOTAL PROTEIN 6.8 GM/DL (6.4-8.2)
[2021-02-24 23:07] LABS: PSA TOTAL 0.4 ng/mL (0.0-4.0)
== END ==
LOC: M PLALAB 09:01
PROVIDERS: ATTEND Family Medicine
DX: I10 Essential (primary) hypertension (principal); R97.20 Elevated prostate specific antigen [PSA]

== ENCOUNTER → 2021-03-08 | Outpatient (CLI) | payer MEDICARE ==
[2021-03-08 16:28] LABS: CALCIUM LEVEL 9.5 MG/DL (8.8-10.2); CREATININE FOR GFR 1.37 MG/DL (0.70-1.30); GLOMERULAR FILTRATION RATE 54.5 (>42); POTASSIUM SERUM 4.6 MEQ/L (3.5-5.1)
== END ==
LOC: M PLALAB 10:27
PROVIDERS: ATTEND Family Medicine
DX: N17.9 Acute kidney failure, unspecified (principal)

== ENCOUNTER → 2021-03-19 | Outpatient (CLI) | payer MEDICARE ==
--- NOTE | 2021-03-19 11:48 | REP ---
INDICATION: ACUTE KIDNEY FAILURE. COMPARISON: CT 10/04/2017. TECHNIQUE: Standard renal sonography and renal artery Doppler ultrasound. FINDINGS: RENAL SONOGRAPHY: RIGHT: The right kidney is 12.2 x 6.5 x 6.7 cm and the cortical echogenicity is normal. There is slight thinning of the cortex and sinus lipomatosis noted. No hydronephrosis or hydroureter seen. There are multiple cysts evident. The largest is in the upper pole and is exophytic 2.8 x 2.6 cm. There are 2 other upper pole cysts at 1.7 x 1.6 cm and 1.8 x 1.7 cm. There is a lower pole 1.6 x 1.2 cm cyst. No hydronephrosis, solid mass or stone. LEFT: Left kidney is 10.1 x 4.8 x 5.2 cm. Cortex is also thinned and appears slightly echogenic. 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 No hydronephrosis or hydroureter. Three cysts are noted. The largest in the superior pole is 2 x 1.9 cm with an interpolar 1.1 x 0.9 cm cyst and a lower pole 1.1 x 1 cm cyst. No solid mass, stone or hydronephrosis. RENAL ARTERY DOPPLER SONOGRAPHY: Right: Length 12.2 cm Renal artery velocity: 57.4 cm/S Aortic velocity 83.5 cm/S Renal aortic ratio 0.68 Resistive index: Upper 0.69, mid 0.71, lower pole 0.72 Acceleration time: Upper 0.036, mid 0.032, lower pole 0.036 seconds Right renal Doppler tracings appear normal. Left: Length 10.1 cm Renal artery velocity 48.9 cm/S Aortic velocity 83.5 cm/S Renal aortic ratio 0.58 Resistive index: Upper 0.75, mid 0.68, lower pole 0.76 Acceleration time upper 0.044, mid 0.032, lower pole 0.052 seconds. The left renal Doppler waveforms show tardus parvus waveform in the superior, mid and lower pole segments but no significant stenosis was visualized. IMPRESSION: 1. Bilateral simple renal cysts with some mild cortical thinning and sinus lipomatosis bilaterally no hydronephrosis, hydroureter stone or solid mass. Cortex is thinned bilaterally and is slightly hyperechoic compared to liver on the left but not the right. 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 2. No direct or indirect compelling evidence for renal artery stenosis. Although left renal artery Doppler waveforms show tardus parvus waveform throughout, no significant stenosis identified by Doppler criteria. <Electronically signed by Ramon Sheikh > 03/19/21 [id number]
== END ==
LOC: M RAD 08:20
PROVIDERS: ATTEND Family Medicine
DX: N17.9 Acute kidney failure, unspecified (principal)

== ENCOUNTER → 2021-05-31 | Outpatient (CLI) | payer MEDICARE ==
[2021-05-31 10:52] LABS: BASO % 0.5 % (0.0-1.0); EOS # 0.2 10^3/uL (0.0-0.5); EOS % 3.8 % (0.0-3.0); HEMATOCRIT 48.4 % (42.0-52.0); HEMOGLOBIN 16.3 g/dl (13.5-17.5); LYMPH # 1.8 10^3/uL (1.5-5.0); LYMPH % 27.8 % (24.0-44.0); MEAN CORPUSCULAR HEMOGLOBIN 32.4 pg (27.0-33.0); MEAN CORPUSCULAR HGB CONC 33.7 g/dl (32.0-36.5); MEAN CORPUSCULAR VOLUME 96.2 fl (80.0-96.0); MONO # 0.6 10^3/uL (0.0-0.8); MONO % 8.8 % (2.0-8.0); NEUTROPHILS # 3.7 10^3/uL (1.5-8.5); NEUTROPHILS % 58.8 % (36.0-66.0); PLATELET COUNT, AUTOMATED 174 10^3/uL (150-450); RED BLOOD COUNT 5.03 10^6/uL (4.30-6.10); WHITE BLOOD COUNT 6.3 10^3/uL (4.0-10.0)
[2021-05-31 12:12] LABS: ALBUMIN 3.5 GM/DL (3.2-5.2); ALT/SGPT 18 U/L (12-78); BILIRUBIN,TOTAL 0.5 MG/DL (0.2-1.0); BLOOD UREA NITROGEN 13 MG/DL (7-18); CALCIUM LEVEL 9.3 MG/DL (8.8-10.2); CARBON DIOXIDE LEVEL 25 MEQ/L (21-32); CHLORIDE LEVEL 107 MEQ/L (98-107); CHOLESTEROL LEVEL 123 MG/DL (<200); CHOLESTEROL RISK RATIO 3.967 (<5); CREATININE FOR GFR 1.25 MG/DL (0.70-1.30); FREE T4 1.03 NG/DL (0.76-1.46); GLOMERULAR FILTRATION RATE > 60.0 (>42); GLUCOSE, FASTING 87 MG/DL (70-100); HDL CHOLESTEROL 31 MG/DL (>40); LDL CHOLESTEROL 69 MG/DL (<100); NON-HDL-C 92 MG/DL; POTASSIUM SERUM 4.5 MEQ/L (3.5-5.1); SODIUM LEVEL 139 MEQ/L (136-145); TOTAL PROTEIN 6.5 GM/DL (6.4-8.2); TRIGLYCERIDES LEVEL 117 MG/DL (<150)
[2021-06-01 23:07] LABS: PSA TOTAL 0.3 ng/mL (0.0-4.0)
== END ==
LOC: M PLALAB 09:09
PROVIDERS: ATTEND Family Medicine
DX: N17.9 Acute kidney failure, unspecified (principal); Z79.899 Other long term (current) drug therapy

== ENCOUNTER → 2021-08-27 | Outpatient (CLI) | payer MEDICARE ==
[~2021-08-27] MED LIST changes: -D31000TA2 PO; +VITA100093 PO
[2021-08-27 10:58] LABS: BASO # 0.1 10^3/uL (0.0-0.2); BASO % 0.6 % (0.0-1.0); EOS # 0.3 10^3/uL (0.0-0.5); EOS % 3.2 % (0.0-3.0); HEMATOCRIT 48.7 % (42.0-52.0); HEMOGLOBIN 16.7 g/dl (13.5-17.5); LYMPH # 2.1 10^3/uL (1.5-5.0); LYMPH % 26.7 % (24.0-44.0); MEAN CORPUSCULAR HGB CONC 34.3 g/dl (32.0-36.5); MEAN CORPUSCULAR VOLUME 99.2 fl (80.0-96.0); MONO # 0.6 10^3/uL (0.0-0.8); NEUTROPHILS # 4.8 10^3/uL (1.5-8.5); NEUTROPHILS % 61.2 % (36.0-66.0); PLATELET COUNT, AUTOMATED 185 10^3/uL (150-450); RED BLOOD COUNT 4.91 10^6/uL (4.30-6.10); WHITE BLOOD COUNT 7.8 10^3/uL (4.0-10.0)
[2021-08-27 11:17] LABS: ALBUMIN 3.7 GM/DL (3.2-5.2); BILIRUBIN,TOTAL 0.5 MG/DL (0.2-1.0); CALCIUM LEVEL 9.3 MG/DL (8.8-10.2); CHOLESTEROL RISK RATIO 3.838 (<5); CREATININE FOR GFR 1.27 MG/DL (0.70-1.30); FREE T4 0.96 NG/DL (0.76-1.46); GLOMERULAR FILTRATION RATE 59.5 (>42); POTASSIUM SERUM 4.6 MEQ/L (3.5-5.1); THYROID STIMULATING HORMONE 2.64 uIU/ML (0.358-3.740); TOTAL PROTEIN 6.7 GM/DL (6.4-8.2)
[2021-08-27 11:30] LABS: HEMOGLOBIN A1c 5.3 %
== END ==
LOC: M PLALAB 08:20
PROVIDERS: ATTEND Nurse Practitioner Adult Health
DX: G47.33 Obstructive sleep apnea (adult) (pediatric) (principal); E78.2 Mixed hyperlipidemia; I10 Essential (primary) hypertension; Z79.899 Other long term (current) drug therapy

== ENCOUNTER → 2021-10-20 | Outpatient (CLI) | payer MEDICARE | LOC: M RAD 15:02 | PROVIDERS: ATTEND Family Medicine | DX: R42 Dizziness and giddiness (principal); R09.89 Other specified symptoms and signs involving the circulatory and respiratory systems ==

== ENCOUNTER → 2021-11-05 | Outpatient (CLI) | payer MEDICARE ==
[2021-11-05 10:39] LABS: BASO # 0.1 10^3/uL (0.0-0.2); BASO % 0.9 % (0.0-1.0); EOS # 0.2 10^3/uL (0.0-0.5); EOS % 2.6 % (0.0-3.0); HEMATOCRIT 47.4 % (42.0-52.0); HEMOGLOBIN 15.9 g/dl (13.5-17.5); LYMPH # 2.1 10^3/uL (1.5-5.0); LYMPH % 25.6 % (24.0-44.0); MEAN CORPUSCULAR HEMOGLOBIN 32.9 pg (27.0-33.0); MEAN CORPUSCULAR HGB CONC 33.5 g/dl (32.0-36.5); MEAN CORPUSCULAR VOLUME 98.1 fl (80.0-96.0); MONO # 0.6 10^3/uL (0.0-0.8); MONO % 6.8 % (2.0-8.0); NEUTROPHILS # 5.1 10^3/uL (1.5-8.5); NEUTROPHILS % 63.7 % (36.0-66.0); PLATELET COUNT, AUTOMATED 166 10^3/uL (150-450); RED BLOOD COUNT 4.83 10^6/uL (4.30-6.10); WHITE BLOOD COUNT 8.1 10^3/uL (4.0-10.0)
[2021-11-05 11:06] LABS: ALBUMIN 3.9 GM/DL (3.2-5.2); BILIRUBIN,TOTAL 0.5 MG/DL (0.2-1.0); CALCIUM LEVEL 9.4 MG/DL (8.8-10.2); CHOLESTEROL RISK RATIO 4.171 (<5); CREATININE FOR GFR 1.27 MG/DL (0.70-1.30); GLOMERULAR FILTRATION RATE 59.5 (>42); POTASSIUM SERUM 4.5 MEQ/L (3.5-5.1); TOTAL PROTEIN 6.3 GM/DL (6.4-8.2)
== END ==
LOC: M PLALAB 08:39
PROVIDERS: ATTEND Family Medicine
DX: I10 Essential (primary) hypertension (principal)

== ENCOUNTER → 2021-11-10 | Outpatient (CLI) | payer MEDICARE ==
[~2021-11-10] MED LIST changes: +ISOVUE-370 76% 100ML VIAL As Ordered ONE
== END ==
LOC: M RAD 10:21
PROVIDERS: ATTEND Family Medicine
DX: I65.01 Occlusion and stenosis of right vertebral artery (principal); R42 Dizziness and giddiness

== ENCOUNTER → 2021-12-22 | Outpatient (CLI) | payer MEDICARE | LOC: M RAD 15:04 | PROVIDERS: ATTEND Family Medicine | DX: I67.2 Cerebral atherosclerosis (principal); R42 Dizziness and giddiness | CPT/HCPCS: 70496; Q9967 ==

== ENCOUNTER → 2022-01-07 | Outpatient (CLI) | payer MEDICARE ==
[~2022-01-07] MED LIST changes: -ISOVUE-370 76% 100ML VIAL As Ordered ONE
== END ==
LOC: M PLALAB 10:31
PROVIDERS: ATTEND Physician Assistant
DX: M17.11 Unilateral primary osteoarthritis, right knee (principal)

== ENCOUNTER → 2022-01-26 | Outpatient (CLI) | payer MEDICARE | LOC: M RAD 09:07 | PROVIDERS: ATTEND Surgery Vascular Surgery | DX: I71.4 Abdominal aortic aneurysm, without rupture (principal) ==

== ENCOUNTER → 2022-03-29 | Outpatient (CLI) | payer MEDICARE ==
[2022-03-29 11:00] LABS: BASO % 0.6 % (0.0-1.0); EOS # 0.2 10^3/uL (0.0-0.5); EOS % 2.3 % (0.0-3.0); HEMATOCRIT 49.2 % (42.0-52.0); HEMOGLOBIN 16.2 g/dl (13.5-17.5); LYMPH % 28.7 % (24.0-44.0); MEAN CORPUSCULAR HEMOGLOBIN 32.9 pg (27.0-33.0); MEAN CORPUSCULAR HGB CONC 32.9 g/dl (32.0-36.5); MONO # 0.5 10^3/uL (0.0-0.8); NEUTROPHILS # 4.3 10^3/uL (1.5-8.5); NEUTROPHILS % 61.3 % (36.0-66.0); PLATELET COUNT, AUTOMATED 180 10^3/uL (150-450); RED BLOOD COUNT 4.92 10^6/uL (4.30-6.10)
[2022-03-29 11:47] LABS: ALBUMIN 3.7 G/DL (3.2-5.2); ALT/SGPT 10 U/L (7.0-40); BILIRUBIN,TOTAL 0.6 MG/DL (0.3-1.2); BLOOD UREA NITROGEN 14 MG/DL (9-23); CALCIUM LEVEL 9.4 MG/DL (8.3-10.6); CARBON DIOXIDE LEVEL 25 MMOL/L (20-31); CHLORIDE LEVEL 106 MMOL/L (98-107); GLOMERULAR FILTRATION RATE > 60.0 (>42); GLUCOSE, FASTING 92 MG/DL (74-106); POTASSIUM SERUM 4.5 MMOL/L (3.5-5.1); SODIUM LEVEL 140 MMOL/L (136-145); TOTAL PROTEIN 6.4 G/DL (5.7-8.2)
== END ==
LOC: M PLALAB 08:28
PROVIDERS: ATTEND Nurse Practitioner Adult Health
DX: E78.2 Mixed hyperlipidemia (principal)

== ENCOUNTER → 2022-06-28 | Outpatient (CLI) | payer MEDICARE ==
[2022-06-28 11:05] LABS: BASO % 0.7 % (0.0-1.0); EOS # 0.2 10^3/uL (0.0-0.5); EOS % 4.6 % (0.0-3.0); HEMATOCRIT 46.9 % (42.0-52.0); HEMOGLOBIN 15.3 g/dl (13.5-17.5); LYMPH # 1.5 10^3/uL (1.5-5.0); LYMPH % 36.5 % (24.0-44.0); MEAN CORPUSCULAR HEMOGLOBIN 32.3 pg (27.0-33.0); MEAN CORPUSCULAR HGB CONC 32.6 g/dl (32.0-36.5); MEAN CORPUSCULAR VOLUME 98.9 fl (80.0-96.0); MONO # 0.5 10^3/uL (0.0-0.8); MONO % 11.5 % (2.0-8.0); NEUTROPHILS % 46.7 % (36.0-66.0); PLATELET COUNT, AUTOMATED 133 10^3/uL (150-450); RED BLOOD COUNT 4.74 10^6/uL (4.30-6.10); WHITE BLOOD COUNT 4.2 10^3/uL (4.0-10.0)
[2022-06-28 11:25] LABS: ALBUMIN 3.4 G/DL (3.2-5.2); ALKALINE PHOSPHATASE 61 U/L (46-116); ALT/SGPT 15 U/L (7.0-40); AST/SGOT 19 U/L (<34); BILIRUBIN,TOTAL 0.3 MG/DL (0.3-1.2); BLOOD UREA NITROGEN 17 MG/DL (9-23); CALCIUM LEVEL 8.8 MG/DL (8.3-10.6); CARBON DIOXIDE LEVEL 25 MMOL/L (20-31); CHLORIDE LEVEL 108 MMOL/L (98-107); CHOLESTEROL LEVEL 102 MG/DL (<200); CHOLESTEROL RISK RATIO 3.36 (<5); CREATININE FOR GFR 1.16 MG/DL (0.70-1.30); FREE T4 1.05 NG/DL (0.89-1.76); GLOMERULAR FILTRATION RATE > 60.0 (>42); GLUCOSE, FASTING 86 MG/DL (74-106); HDL CHOLESTEROL 30.3 MG/DL (>40); LDL CHOLESTEROL 53.9 MG/DL (<100); NON-HDL-C 72 MG/DL; POTASSIUM SERUM 4.5 MMOL/L (3.5-5.1); SODIUM LEVEL 138 MMOL/L (136-145); THYROID STIMULATING HORMONE 2.655 uIU/ML (0.55-4.78); TOTAL PROTEIN 6.1 G/DL (5.7-8.2); TRIGLYCERIDES LEVEL 89 MG/DL (<150)
[2022-06-29 23:09] LABS: PSA TOTAL 0.3 ng/mL (0.0-4.0)
== END ==
LOC: M PLALAB 08:21
PROVIDERS: ATTEND Family Medicine
DX: I10 Essential (primary) hypertension (principal); R97.20 Elevated prostate specific antigen [PSA]

== ENCOUNTER → 2022-08-08 | Outpatient (CLI) | payer MEDICARE | LOC: M RAD 11:37 | PROVIDERS: ATTEND Physician Assistant | DX: R22.32 Localized swelling, mass and lump, left upper limb (principal) ==

== ENCOUNTER → 2022-08-09 | Outpatient (CLI) | payer MEDICARE ==
[2022-08-09 16:33] LABS: URIC ACID 6.6 MG/DL (3.7-9.2)
[2022-08-09 16:37] LABS: C REACTIVE PROTEIN QUANTITATIV < 0.40 MG/DL (<1.0)
[2022-08-09 16:39] LABS: RHEUMATOID FACTOR QUANT < 3.5 IU/ML (<14)
== END ==
LOC: M PLALAB 13:32
PROVIDERS: ATTEND Nurse Practitioner Adult Health
DX: M25.542 Pain in joints of left hand (principal)

== ENCOUNTER → 2022-09-09 | Outpatient (CLI) | payer MEDICARE | LOC: M RAD 10:24 | PROVIDERS: ATTEND Nurse Practitioner Adult Health | DX: R22.32 Localized swelling, mass and lump, left upper limb (principal) ==

== ENCOUNTER → 2022-10-03 | Outpatient (CLI) | payer MEDICARE ==
[2022-10-03 09:11] LABS: BASO # 0.1 10^3/uL (0.0-0.2); BASO % 0.8 % (0.0-1.0); EOS # 0.2 10^3/uL (0.0-0.5); EOS % 2.9 % (0.0-3.0); HEMATOCRIT 43.1 % (42.0-52.0); HEMOGLOBIN 14.8 g/dl (13.5-17.5); LYMPH % 26.9 % (24.0-44.0); MEAN CORPUSCULAR HEMOGLOBIN 33.2 pg (27.0-33.0); MEAN CORPUSCULAR HGB CONC 34.3 g/dl (32.0-36.5); MEAN CORPUSCULAR VOLUME 96.6 fl (80.0-96.0); MONO # 0.6 10^3/uL (0.0-0.8); MONO % 7.5 % (2.0-8.0); NEUTROPHILS # 4.5 10^3/uL (1.5-8.5); NEUTROPHILS % 61.5 % (36.0-66.0); PLATELET COUNT, AUTOMATED 207 10^3/uL (150-450); RED BLOOD COUNT 4.46 10^6/uL (4.30-6.10); WHITE BLOOD COUNT 7.3 10^3/uL (4.0-10.0)
[2022-10-03 09:24] LABS: ALBUMIN 3.6 G/DL (3.2-5.2); ALKALINE PHOSPHATASE 63 U/L (46-116); ALT/SGPT 15 U/L (7.0-40); AST/SGOT 14 U/L (<34); BILIRUBIN,TOTAL 0.5 MG/DL (0.3-1.2); BLOOD UREA NITROGEN 19 MG/DL (9-23); CALCIUM LEVEL 9.2 MG/DL (8.3-10.6); CARBON DIOXIDE LEVEL 21 MMOL/L (20-31); CHLORIDE LEVEL 108 MMOL/L (98-107); CREATININE FOR GFR 1.12 MG/DL (0.70-1.30); GLOMERULAR FILTRATION RATE > 60.0 (>42); GLUCOSE, FASTING 94 MG/DL (74-106); POTASSIUM SERUM 4.4 MMOL/L (3.5-5.1); SODIUM LEVEL 138 MMOL/L (136-145); TOTAL PROTEIN 6.3 G/DL (5.7-8.2)
== END ==
LOC: M LAB 08:39
PROVIDERS: ATTEND Nurse Practitioner Adult Health
DX: I10 Essential (primary) hypertension (principal)

== ENCOUNTER → 2022-11-29 | Outpatient (CLI) | payer MEDICARE ==
[2022-11-29 10:58] LABS: BASO # 0.1 10^3/uL (0.0-0.2); BASO % 0.7 % (0.0-1.0); EOS # 0.2 10^3/uL (0.0-0.5); EOS % 2.4 % (0.0-3.0); HEMOGLOBIN 15.8 g/dl (13.5-17.5); LYMPH # 2.3 10^3/uL (1.5-5.0); LYMPH % 29.6 % (24.0-44.0); MEAN CORPUSCULAR HGB CONC 33.6 g/dl (32.0-36.5); MEAN CORPUSCULAR VOLUME 98.1 fl (80.0-96.0); MONO # 0.5 10^3/uL (0.0-0.8); MONO % 6.8 % (2.0-8.0); NEUTROPHILS # 4.6 10^3/uL (1.5-8.5); NEUTROPHILS % 60.1 % (36.0-66.0); PLATELET COUNT, AUTOMATED 189 10^3/uL (150-450); RED BLOOD COUNT 4.79 10^6/uL (4.30-6.10); WHITE BLOOD COUNT 7.6 10^3/uL (4.0-10.0)
[2022-11-29 11:14] LABS: C REACTIVE PROTEIN QUANTITATIV < 0.40 MG/DL (<1.0); URIC ACID 7.2 MG/DL (3.7-9.2)
[2022-11-29 11:15] LABS: ALBUMIN 3.7 G/DL (3.2-5.2); ALKALINE PHOSPHATASE 67 U/L (46-116); ALT/SGPT 10 U/L (7.0-40); AST/SGOT < 8 U/L (<34); BILIRUBIN,TOTAL 0.4 MG/DL (0.3-1.2); BLOOD UREA NITROGEN 15 MG/DL (9-23); CALCIUM LEVEL 9.3 MG/DL (8.3-10.6); CARBON DIOXIDE LEVEL 24 MMOL/L (20-31); CHLORIDE LEVEL 107 MMOL/L (98-107); CREATININE FOR GFR 1.02 MG/DL (0.70-1.30); GLOMERULAR FILTRATION RATE > 60.0 (>42); GLUCOSE, FASTING 87 MG/DL (74-106); POTASSIUM SERUM 4.5 MMOL/L (3.5-5.1); SODIUM LEVEL 140 MMOL/L (136-145); TOTAL PROTEIN 6.8 G/DL (5.7-8.2)
[2022-11-29 11:17] LABS: RHEUMATOID FACTOR QUANT < 3.5 IU/ML (<14)
[2022-11-29 11:31] LABS: ERYTHROCYTE SEDIMENTATION RATE 27 mm/hr (0-20)
[2022-11-30 13:15] LABS: ANTINUCLEAR ANTIBODIES DIRECT Negative (Negative)
== END ==
LOC: M PLALAB 08:34
PROVIDERS: ATTEND Orthopaedic Surgery
DX: M79.641 Pain in right hand (principal)

== ENCOUNTER → 2022-11-29 | Outpatient (CLI) | payer MEDICARE ==
[2022-11-29 10:58] LABS: BASO # 0.1 10^3/uL (0.0-0.2); BASO % 0.7 % (0.0-1.0); EOS # 0.2 10^3/uL (0.0-0.5); EOS % 2.4 % (0.0-3.0); HEMATOCRIT 46.6 % (42.0-52.0); HEMOGLOBIN 15.4 g/dl (13.5-17.5); LYMPH # 2.2 10^3/uL (1.5-5.0); LYMPH % 29.3 % (24.0-44.0); MEAN CORPUSCULAR HEMOGLOBIN 32.5 pg (27.0-33.0); MEAN CORPUSCULAR VOLUME 98.3 fl (80.0-96.0); MONO # 0.6 10^3/uL (0.0-0.8); MONO % 7.4 % (2.0-8.0); NEUTROPHILS # 4.5 10^3/uL (1.5-8.5); NEUTROPHILS % 59.9 % (36.0-66.0); PLATELET COUNT, AUTOMATED 195 10^3/uL (150-450); RED BLOOD COUNT 4.74 10^6/uL (4.30-6.10); WHITE BLOOD COUNT 7.4 10^3/uL (4.0-10.0)
[2022-11-29 11:16] LABS: URIC ACID 7.2 MG/DL (3.7-9.2)
[2022-11-29 11:18] LABS: C REACTIVE PROTEIN QUANTITATIV < 0.40 MG/DL (<1.0)
[2022-11-29 11:19] LABS: ALBUMIN 3.7 G/DL (3.2-5.2); ALKALINE PHOSPHATASE 67 U/L (46-116); ALT/SGPT 10 U/L (7.0-40); AST/SGOT < 8 U/L (<34); BILIRUBIN,TOTAL 0.4 MG/DL (0.3-1.2); BLOOD UREA NITROGEN 14 MG/DL (9-23); CALCIUM LEVEL 9.3 MG/DL (8.3-10.6); CARBON DIOXIDE LEVEL 23 MMOL/L (20-31); CHLORIDE LEVEL 108 MMOL/L (98-107); CHOLESTEROL LEVEL 124 MG/DL (<200); GLOMERULAR FILTRATION RATE > 60.0 (>42); GLUCOSE, FASTING 86 MG/DL (74-106); HDL CHOLESTEROL 33.5 MG/DL (>40); LDL CHOLESTEROL 72.5 MG/DL (<100); NON-HDL-C 90.5 MG/DL; POTASSIUM SERUM 4.4 MMOL/L (3.5-5.1); RHEUMATOID FACTOR QUANT < 3.5 IU/ML (<14); SODIUM LEVEL 139 MMOL/L (136-145); TOTAL PROTEIN 6.7 G/DL (5.7-8.2); TRIGLYCERIDES LEVEL 90 MG/DL (<150)
[2022-11-29 11:30] LABS: ERYTHROCYTE SEDIMENTATION RATE 22 mm/hr (0-20)
== END ==
LOC: M PLALAB 08:31
PROVIDERS: ATTEND Family Medicine
DX: M25.541 Pain in joints of right hand (principal); I10 Essential (primary) hypertension; I25.10 Atherosclerotic heart disease of native coronary artery without angina pectoris

== ENCOUNTER → 2023-02-21 | Outpatient (CLI) | payer MEDICARE | LOC: M RAD 08:17 | PROVIDERS: ATTEND Physician Assistant | DX: I71.40 Abdominal aortic aneurysm, without rupture, unspecified (principal) ==

== ENCOUNTER → 2023-07-31 | Outpatient (CLI) | payer MEDICARE ==
[2023-07-31 14:42] LABS: BLOOD UREA NITROGEN 20 MG/DL (9-23); CALCIUM LEVEL 8.9 MG/DL (8.3-10.6); CARBON DIOXIDE LEVEL 24 MMOL/L (20-31); CHLORIDE LEVEL 109 MMOL/L (98-107); CREATININE FOR GFR 1.07 MG/DL (0.70-1.30); GLOMERULAR FILTRATION RATE > 60.0 (>42); GLUCOSE, FASTING 81 MG/DL (74-106); MAGNESIUM LEVEL 1.8 MG/DL (1.8-2.4); POTASSIUM SERUM 4.5 MMOL/L (3.5-5.1); SODIUM LEVEL 136 MMOL/L (136-145)
== END ==
LOC: M PLALAB 12:05
PROVIDERS: ATTEND Physician Assistant
DX: I50.42 Chronic combined systolic (congestive) and diastolic (congestive) heart failure (principal)

== ENCOUNTER → 2023-10-11 | Outpatient (CLI) | payer MEDICARE ==
[~2023-10-11] MED LIST changes: +RAMI10CA64 PO; -RAMI1CAP26 PO
[2023-10-11 10:30] LABS: BASO # 0.1 10^3/uL (0.0-0.2); BASO % 0.8 % (0.0-1.0); EOS # 0.3 10^3/uL (0.0-0.5); EOS % 4.7 % (0.0-3.0); HEMATOCRIT 45.2 % (42.0-52.0); LYMPH # 2.4 10^3/uL (1.5-5.0); LYMPH % 32.4 % (24.0-44.0); MEAN CORPUSCULAR HEMOGLOBIN 33.6 pg (27.0-33.0); MEAN CORPUSCULAR HGB CONC 33.2 g/dl (32.0-36.5); MEAN CORPUSCULAR VOLUME 101.1 fl (80.0-96.0); MONO # 0.5 10^3/uL (0.0-0.8); MONO % 7.4 % (2.0-8.0); NEUTROPHILS % 54.4 % (36.0-66.0); PLATELET COUNT, AUTOMATED 185 10^3/uL (150-450); RED BLOOD COUNT 4.47 10^6/uL (4.30-6.10); WHITE BLOOD COUNT 7.3 10^3/uL (4.0-10.0)
[2023-10-11 10:42] LABS: ALBUMIN 3.4 G/DL (3.2-5.2); ALKALINE PHOSPHATASE 72 U/L (46-116); ALT/SGPT 13 U/L (7.0-40); AST/SGOT 9 U/L (<34); BILIRUBIN,TOTAL 0.4 MG/DL (0.3-1.2); BLOOD UREA NITROGEN 15 MG/DL (9-23); CALCIUM LEVEL 9.3 MG/DL (8.3-10.6); CARBON DIOXIDE LEVEL 27 MMOL/L (20-31); CHLORIDE LEVEL 110 MMOL/L (98-107); CHOLESTEROL LEVEL 117 MG/DL (<200); CHOLESTEROL RISK RATIO 3.64 (<5); CREATININE FOR GFR 1.14 MG/DL (0.70-1.30); FREE T4 0.88 NG/DL (0.89-1.76); GLOMERULAR FILTRATION RATE > 60.0 (>42); GLUCOSE, FASTING 91 MG/DL (74-106); HDL CHOLESTEROL 32.1 MG/DL (>40); LDL CHOLESTEROL 65.9 MG/DL (<100); NON-HDL-C 84.9 MG/DL; POTASSIUM SERUM 4.6 MMOL/L (3.5-5.1); SODIUM LEVEL 142 MMOL/L (136-145); THYROID STIMULATING HORMONE 3.166 uIU/ML (0.55-4.78); TOTAL PROTEIN 6.2 G/DL (5.7-8.2); TRIGLYCERIDES LEVEL 95 MG/DL (<150)
[2023-10-12 20:18] LABS: PSA TOTALX 0.4 ng/mL (0.0-4.0)
== END ==
LOC: M PLALAB 08:23
PROVIDERS: ATTEND Nurse Practitioner Adult Health
DX: I10 Essential (primary) hypertension (principal)

== ENCOUNTER → 2024-02-23 | Outpatient (CLI) | payer MEDICARE ==
[~2024-02-23] MED LIST changes: +GABA-1172 PO; -GABA-282 PO
== END ==
LOC: M RAD 08:55
PROVIDERS: ATTEND Physician Assistant
DX: I71.40 Abdominal aortic aneurysm, without rupture, unspecified (principal)

== ENCOUNTER → 2024-04-09 | Outpatient (CLI) | payer MEDICARE ==
[2024-04-09 10:59] LABS: BASO # 0.1 10^3/uL (0.0-0.2); BASO % 0.8 % (0.0-1.0); EOS # 0.3 10^3/uL (0.0-0.5); EOS % 4.6 % (0.0-3.0); HEMATOCRIT 45.4 % (42.0-52.0); HEMOGLOBIN 15.5 g/dl (13.5-17.5); LYMPH # 1.8 10^3/uL (1.5-5.0); LYMPH % 25.7 % (24.0-44.0); MEAN CORPUSCULAR HEMOGLOBIN 33.3 pg (27.0-33.0); MEAN CORPUSCULAR HGB CONC 34.1 g/dl (32.0-36.5); MEAN CORPUSCULAR VOLUME 97.4 fl (80.0-96.0); MONO # 0.6 10^3/uL (0.0-0.8); MONO % 7.9 % (2.0-8.0); NEUTROPHILS # 4.3 10^3/uL (1.5-8.5); NEUTROPHILS % 60.7 % (36.0-66.0); PLATELET COUNT, AUTOMATED 181 10^3/uL (150-450); RED BLOOD COUNT 4.66 10^6/uL (4.30-6.10); WHITE BLOOD COUNT 7.1 10^3/uL (4.0-10.0)
[2024-04-09 11:13] LABS: ALBUMIN 3.4 G/DL (3.2-5.2); ALKALINE PHOSPHATASE 71 U/L (40-129); ALT/SGPT 18 U/L (7.0-40); AST/SGOT 11 U/L (<34); BILIRUBIN,TOTAL 0.7 MG/DL (0.3-1.2); BLOOD UREA NITROGEN 16 MG/DL (9-23); CALCIUM LEVEL 9.7 MG/DL (8.3-10.6); CARBON DIOXIDE LEVEL 27 MMOL/L (20-31); CHLORIDE LEVEL 108 MMOL/L (98-107); CHOLESTEROL LEVEL 121 MG/DL (<200); CHOLESTEROL RISK RATIO 4.08 (<5); CREATININE FOR GFR 1.09 MG/DL (0.70-1.30); GLOMERULAR FILTRATION RATE > 60.0 (>42); GLUCOSE, FASTING 90 MG/DL (74-106); HDL CHOLESTEROL 29.6 MG/DL (>40); NON-HDL-C 91.4 MG/DL; POTASSIUM SERUM 4.4 MMOL/L (3.5-5.1); SODIUM LEVEL 141 MMOL/L (136-145); TOTAL PROTEIN 6.3 G/DL (5.7-8.2); TRIGLYCERIDES LEVEL 102 MG/DL (<150)
== END ==
LOC: M PLALAB 09:03
PROVIDERS: ATTEND Family Medicine
DX: E78.2 Mixed hyperlipidemia (principal)

== ENCOUNTER → 2024-07-03 | Outpatient (CLI) | payer MEDICARE | LOC: M SOG 08:02 | PROVIDERS: ATTEND Physician Assistant | DX: S62.601A Fracture of unspecified phalanx of left index finger, initial encounter for closed fracture (principal); W18.30XA Fall on same level, unspecified, initial encounter; Y92.009 Unspecified place in unspecified non-institutional (private) residence as the place of occurrence of the external cause ==

== ENCOUNTER → 2025-02-24 | Outpatient (CLI) | payer MEDICARE | LOC: M RAD 08:46 | PROVIDERS: ATTEND Physician Assistant | DX: I71.40 Abdominal aortic aneurysm, without rupture, unspecified (principal) ==

== ENCOUNTER → 2025-03-17 | Outpatient (CLI) | payer MEDICARE ==
[2025-03-17 10:56] LABS: BASO # 0.1 10^3/uL (0.0-0.2); BASO % 0.7 % (0.0-1.0); EOS # 0.3 10^3/uL (0.0-0.5); EOS % 4.6 % (0.0-3.0); LYMPH # 1.8 10^3/uL (1.5-5.0); LYMPH % 26.4 % (24.0-44.0); MONO # 0.6 10^3/uL (0.0-0.8); MONO % 8.2 % (2.0-8.0); NEUTROPHILS # 4.2 10^3/uL (1.5-8.5); NEUTROPHILS % 59.8 % (36.0-66.0); PLATELET COUNT, AUTOMATED 211 10^3/uL (150-450)
[2025-03-17 11:21] LABS: ALT/SGPT 18.0 U/L (7.0-40); AST/SGOT 18.0 U/L (<34); CALCIUM LEVEL 8.9 MG/DL (8.3-10.6); CARBON DIOXIDE LEVEL 25.0 MMOL/L (20-31); CHLORIDE LEVEL 110.0 MMOL/L (98-107); CHOLESTEROL LEVEL 112.0 MG/DL (<200); CHOLESTEROL RISK RATIO 3.67 (<5); CREATININE FOR GFR 1.14 MG/DL (0.70-1.30); GLOMERULAR FILTRATION RATE 67.1 (>42); LDL CHOLESTEROL 64.7 MG/DL (<100); NON-HDL-C 81.5 MG/DL; POTASSIUM SERUM 4.4 MMOL/L (3.5-5.1); SODIUM LEVEL 141.0 MMOL/L (136-145); TRIGLYCERIDES LEVEL 84.0 MG/DL (<150)
== END ==
LOC: M PLALAB 08:47
PROVIDERS: ATTEND Nurse Practitioner Adult Health
DX: I10 Essential (primary) hypertension (principal); E78.2 Mixed hyperlipidemia